=== PATIENT | female | born 1995 | race Caucasian/White ===

== ENCOUNTER 2019-02-05 13:36 | Emergency (ER) | payer MEDICAID, SELFPAY ==
[2019-02-05 13:37] VITALS: BP 126/67; PULSE 72; RESP 14; TEMP 36.9; O2SAT 97; BMI 29.0
--- NOTE | 2019-02-05 14:03 | ED.DCSUM_ITS ---
- ER Visit Summary Date of Service: 02/05/19 Chief Complaint: Possible STD History of Present Illness: The patient is a 23 F who presents for possible STD. Patient states she has had intercourse with 2 different partners recently. Patient states she had intercourse with the father of her children without a condom. Patient states she had intercourse with another partner but used a condom. Patient denies any dysuria or hematuria. Patient states she started her menstrual period today. Patient admits to some vaginal discharge but thinks it is related to her menstrual period. Patient admits to some lower abdominal cramping. Physical Examination: Vital signs are stable. Patient is afebrile. Patient is in no acute distress. Oral mucosa is pink and moist. Neck is supple. Trachea is midline. There is no JVD noted. Heart was regular rate and rhythm. Lungs are clear and equal bilateral. Abdomen is soft. Bowel sounds are normal. There is no tenderness. There is no guarding noted. Skin is warm dry. Cranial nerves II through XII are intact. There are no focal motor or sensory deficits noted. The remaining physical exam is within normal limits. Test Results: Urinalysis is normal. GC and Chlamydia cultures are pending. Emergency Department Course and Treatment: Patient was given Rocephin and Zithromax here. Patient was instructed to follow-up with her primary care physician in 7-10 days. Patient was instructed to refrain from intercourse until she follows up. Patient understood and was agreeable with the plan. All questions were answered. Disposition: Discharge home Impression: STD exposure This note was generated with [employer] dictation software. It may contain incorrect words, spelling, and punctuation that were not noted in review of the chart prior to signing ED Disposition - Plan for ED Patient: Disposition: Home or Assisted Living Diagnosis: STD exposure Instructions: ED Urethritis Infec Vs Inflam Fem Referrals: Care Physician,No Primary [Primary Care Provider] - Nima Guerin DO [STAFF PHYSICIAN] - 1 Week Additional Instructions: Avoid sexual intercourse until follow-up with your primary care physician
[2019-02-05 14:34] LABS: Mucous, Urine 0 SEEN /hpf (<or=2+)
[2019-02-05 14:37] LABS: Color, Urine Yellow (Yellow); Glucose, Dipstick Normal (Normal); Ketone-Dipstick Negative (Negative); Leukocyte Esterase-Dipstick 25 /ul (Negative); Nitrite-Dipstick Negative (Negative); Occult Blood-Urine 10 /ul (Negative); Protein-Dipstick Negative (Negative); Specific Gravity, Urine 1.015 (1.002-1.030); Urine Bilirubin Dipstick Negative (Negative); Urine Clarity Sl. Cloudy (Clear); Urine Urobilinogen 1 mg/dl (Normal); Urine pH 6.5 (5.0 - 8.0)
[2019-02-05 14:50] LABS: Bacteria 1+ /hpf (None Seen); Red Blood Cells-Urine 0-5 SEEN /hpf (0-5); Squamous Epithelial Cells - UA 0-5 SEEN /hpf (5-10); White Blood Cells 0-5 SEEN /hpf (0-5)
[2019-02-05 16:24] LABS: HIV - WCH Non-Reactive (Nonreactive)
[2019-02-05] MEDS: Azithromycin 250 MG Tablet 1000 MG PO (16:30)
[2019-02-05] MEDS: Ceftriaxone 500 MG Vial 250 MG IM (16:30)
[2019-02-05 16:50] VITALS: PULSE 67; RESP 16; O2SAT 99
[2019-02-05 17:17] LABS: Chlamydia Trachomatis by PCR Negative (Negative); Neisserai gonorrhoeae by PCR Negative (Negative); Probe Check PASS; Sample Adequacy Control PASS; Specimen Processing Control PASS
== END 2019-02-05 16:50 | disposition home or self-care (01) ==
PROVIDERS: Emergency Provider Emergency Medicine
DX: Z20.2 Contact with and (suspected) exposure to infections with a predominantly sexual mode of transmission (principal); Z72.0 Tobacco use
CPT/HCPCS: 81001; 86703; 87491; 87591; 96372; 99283

== ENCOUNTER 2019-06-03 13:21 | Emergency (ER) | payer MEDICAID, SELFPAY ==
[2019-06-03 13:21] VITALS: BP 121/70; PULSE 86; RESP 16; TEMP 37; O2SAT 100; BMI 28.0
--- NOTE | 2019-06-03 14:10 | ED.VIS.GEN ---
History of Present Illness Chief Complaint: Complaint Detail of Chief Complaint: Vaginal discharge Informant: Patient Onset: Weeks - 1 Context: Gradual Onset - After having unprotected intercourse 2-3 weeks ago Timing: Continuous Quality: White, otherwise a symptomatic Location: Vaginal Current Severity: Mild Maximum Severity: Mild Worsened by: nothing Relieved by: nothing Associated Symptoms: none Narrative: Patient states she wants checked for all STDs. Denies any abdominal or pelvic pain. No nausea, vomiting, fevers. No urinary symptoms. No vaginal discomfort or itching. No known history of STDs. Past Medical History - Allergies and Home Meds Allergies/Adverse Reactions: Allergies No Known Allergies Allergy (Verified 06/03/19 13:24) Primary Care Physician: Care Physician,No Primary [Primary Care Provider] - Smoking Status: Heavy Smoker (>10/day) Drugs: None Review of Systems General: Denies: Chills, Fever Gastrointestinal: Denies: Abdominal pain, Nausea, Vomiting Genitourinary: Reports: - - Vaginal discharge, - - LNMP - now, has been regular. Denies: Dysuria, Hematuria, Frequency Musculoskeletal: Denies: Neck pain, Back pain Physical Exam Vital Signs/Narrative: Vital Signs Temp Pulse Resp BP Pulse Ox 06/03/19 13:21 98.6 F 86 16 121/70 H 100 Inital Vital Signs reviewed: Yes General: Well nourished, Well developed, No Acute Distress Head: Normocephalic, Atraumatic Abdomen: Soft, Nontender, Nondistended, Normal bowel sounds Skin: Normal color, No rash Neurological: Alert, Oriented x3, Cranial nerves II-XII grossly intact, Normal Strength, Normal Sensation, Normal Gait Psychological: Normal affect, Normal Mood Diagnostic/Tx/Re-eval Microbiology 06/03/19 14:30 Genital vaginal Wet Prep - Final -- Neg Trich; No WBC/HPF. - Medical Decision Making GC and Chlamydia are sent and pending. Patient was treated for both with Rocephin 250 IM and azithromycin 1 g p.o.. Wet prep is negative. Advised to follow-up with the health department for any further STD testing, none others clinically suspected but as I advised her, we are not able to test for HIV here. Advised to follow-up. ED Disposition - Plan for ED Patient: Disposition: Home or Assisted Living Diagnosis: Sexually transmitted infection Instructions: CERVICITIS (STD), Treated Referrals: Christina Callejas [NON-STAFF] - 5-7 Days
[2019-06-03] MEDS: Azithromycin 250 MG Tablet 1000 MG PO (14:20)
[2019-06-03] MEDS: Ceftriaxone 500 MG Vial 250 MG IM (14:54)
[2019-06-03 16:53] LABS: Chlamydia Trachomatis by PCR POSITIVE (Negative); Neisserai gonorrhoeae by PCR Negative (Negative)
[2019-06-03 16:54] LABS: Probe Check PASS
--- NOTE | 2019-06-03 16:58 | ED.RN ---
called and left the pt a vm requesting her to call back regarding her test results.
== END 2019-06-03 15:36 | disposition home or self-care (01) ==
PROVIDERS: Emergency Provider Emergency Medicine
DX: A64 Unspecified sexually transmitted disease (principal); F17.200 Nicotine dependence, unspecified, uncomplicated
CPT/HCPCS: 87210; 87491; 87591; 96372; 99283

== ENCOUNTER 2019-08-07 13:13 | Emergency (ER) | payer MEDICAID, SELFPAY ==
[2019-08-07 13:17] VITALS: BP 144/89; PULSE 82; RESP 17; TEMP 36.8; O2SAT 98; BMI 28.5
--- NOTE | 2019-08-07 16:37 | ED.VISSUMM ---
- ER Visit Summary Date of Service: 08/07/19 Chief Complaint: Anxiety and panic attacks History of Present Illness: The patient is a 23 F who presents with increasing anxiety and panic attacks over the past 2 to 3 months. Patient states nothing in particular brings them on. Patient states they have been getting more frequent. Patient states it improves after taking marijuana. Patient denies any suicidal ideation or plans. Patient denies any homicidal ideations. Patient states her panic attacks have been intermittent. Patient states she does have some chest pain with her panic attacks but states it is similar to prior chest pain with her panic attacks. Physical Examination: All vital signs are stable. Patient is afebrile. Patient is in no acute distress. Oral mucosa is pink and moist. Neck is supple. Trachea is midline. There is no JVD noted. Heart was regular rate and rhythm. Lungs are clear and equal bilateral. Abdomen is soft. Bowel sounds are normal. There is no tenderness. There is no guarding noted. Skin is warm dry. Cranial nerves II through XII are intact. There are no focal motor or sensory deficits noted. Patient was anxious on examination. Patient denies any suicidal thoughts or ideation. Test Results: CBC, basic metabolic profile, urinalysis, and hCG were obtained and were all normal. Emergency Department Course and Treatment: Patient was given a dose of Vistaril here. Patient was feeling better on reevaluation. Patient was given a prescription for Vistaril. Social work was then to evaluate the patient was able to set her up for outpatient psychiatric treatment. Patient understood and was agreeable with the plan. All questions were answered. Disposition: Discharge home Impression: Acute anxiety This note was generated with [employer] dictation software. It may contain incorrect words, spelling, and punctuation that were not noted in review of the chart prior to signing ED Disposition - Plan for ED Patient: Disposition: Home or Assisted Living Diagnosis: Acute anxiety Instructions: Anxiety Reaction Prescriptions: hydrOXYzine pamoate capsule [Vistaril] 25 mg PO TID PRN PRN #30 cap PRN Reason: Anxiety Prescription Printed Referrals: Care Physician,No Primary [Primary Care Provider] -
--- NOTE | 2019-08-07 17:20 | CM.ED ---
SOCIAL WORK ASSESSMENT INFORMANT: DR. ARAIZA REASON FOR REFERRAL: MENTAL HEALTH RESOURCES CHIEF COMPLIANT: INCREASED ANXIETY, PANIC ATTACKS. LIVING SITUATION: HOME WITH 3 CHILDREN, AGES 7, 4, AND 2. SUPPORTS: PATIENT STATES GRANDMOTHER AND AUNT ARE GOOD SUPPORT FOR PATIENT AND HER CHILDREN. PATIENT ALSO FOLLOWS WITH [facility]. LEGAL ISSUES: PATIENT IS CURRENTLY ON PROBATION FOR TRESPASSING. PATIENT CONCERNED ABOUT GOING TO PENITENTIARY SHE WAS RECENTLY DRUG SCREENED AND FAILED D/T MARIJUANA USE. MENTAL HEALTH TREATMENT/HISTORY: PATIENT REPORTS HISTORY OF SEVERE ANXIETY, DEPRESSION AND PTSD. PATIENT WAS PRESCRIBED MEDICATION, BUT DID NOT TAKE IT FOR LONG SHE DID NOT LIKE HOW SHE WAS FEELING. PATIENT REPORTS FOLLOWS WITH [facility]. SUBSTANCE ABUSE HISTORY: PATIENT ADMITS TO OCCASIONAL MARIJUANA USE. EDUCATION/EMPLOYMENT: PATIENT OBTAINED HER G.E.D. AND HAS HAD SOME COLLEGE. 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 PATIENT REPORTS IS CURRENTLY UNEMPLOYED. TRANSPORTATION: PATIENT STATES ISSUES WITH TRANSPORTATION SHE DOES NOT HAVE A CAR. ASSESSMENT: MET WITH PATIENT IN ROOM. INTRODUCED ROLE AND REASON FOR REFERRAL. PATIENT HAS BEEN HAVING INCREASED ANXIETY AND PANIC ATTACKS. 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 PATIENT IS CURRENTLY ON PAROLE AND ALLOWED A FRIEND AND HER GIRLFRIEND TO STAY WITH HER FOR A NIGHT THEY DO NOT HAVE A PLACE TO LIVE. PATIENT STATES FOUND OUT THIS MORNING THAT THEY WERE USING METH AND ASKED THE FRIENDS TO LEAVE SHE HAS CHILDREN IN THE HOME AND IS ON PAROLE. 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 PATIENT STATES ALL OF THIS ELEVATED HER ANXIETY. PATIENT TEARFUL. PATIENT HAD SMOKED MARIJUANA TO HELP WITH ANXIETY. MUCH EMOTIONAL SUPPORT AND ACTIVE LISTENING PROVIDED THROUGHOUT. PATIENT HAS A HARD TIME FINDING HELP THERE IS NO ONE TO WATCH HER KIDS AND DOESN'T WANT TO STRESS OUT HER GRANDMOTHER. PATIENT FEARFUL OF LOSING HER CHILDREN AND GOING TO PENITENTIARY. PATIENT EXPLAINED THAT SHE RECENTLY TESTED DIRTY ON DRUG SCREEN. PATIENT OPEN TO FOLLOW UP APPOINTMENT WITH [facility] FROM ED VISIT. APPOINTMENT SCHEDULED FOR A 10AM APPOINTMENT TOMORROW, 08/08/19 WITH [facility]. DISCUSSED RESOURCES AVAILABLE IN THE COMMUNITY FOR NEEDS. ALL QUESTIONS ANSWERED. UPDATED DR. ARAIZA ON THE ABOVE. PLAN: D/C HOME BEFORE WITH FOLLOW UP AT [facility] TOMORROW AT 10AM. MELINDA VILLAGOMEZ, ECONOMIC DEVELOPMENT DIRECTOR.
[2019-08-07] MEDS: hydrOXYzine PAM 25 MG Capsule PO (17:21)
[2019-08-07 17:39] LABS: Bacteria 0 SEEN /hpf (None Seen)
[2019-08-07 17:43] LABS: Basophil# 0.02 X10^3/uL; Basophil% 0.3 % (0-1); Eosinophil# 0.06 X10^3/uL; Eosinophils% 0.8 % (0-5); Hematocrit 41.6 % (37-47); Hemoglobin 13.6 g/dL (12.0-15.0); Lymphocyte % 30.2 % (19-41); Mean Corp Hgb Conc 32.7 g/dL (32-36); Mean Corpuscular Volume 91.8 fL (81-99); Mean Platelet Vol. 11.4 fl (6.2-12.0); Monocyte# 0.48 X10^3/uL; NRBC Flagged by Analyzer 0 % (0-5); Neutrophil # 4.98 X10^3/uL (2.7-7.7); Neutrophil % 62.6 % (47-70); Platelet Count 216 K/mm3 (150-450); RBC Distribution Width CV 12.6 % (11.6-14.6); Red Blood Count 4.53 M/mm3 (4.2-5.4)
[2019-08-07 17:49] LABS: Color, Urine Yellow (Yellow); Glucose, Dipstick Normal (Normal); Ketone-Dipstick Negative (Negative); Leukocyte Esterase-Dipstick 100 /ul (Negative); Nitrite-Dipstick Negative (Negative); Occult Blood-Urine 10 /ul (Negative); Protein-Dipstick 15 mg/dl (Negative); Urine Bilirubin Dipstick Negative (Negative); Urine Clarity Clear (Clear); Urine Urobilinogen 1 mg/dl (Normal)
[2019-08-07 17:51] LABS: Internal QC Validated? YES +Cl - CLEAR BKGD; Pregnancy, Serum, hCG Quali. NEGATIVE Negative
[2019-08-07 17:54] LABS: Anion Gap 5 (5-15); BUN 7 mg/dL (7-18); BUN/Creat Ratio 8.7 RATIO (10-20); Chloride 110 mmol/L (98-107); Creatinine, Serum 0.81 mg/dL (0.55-1.02); EST Glomerular Filtration Rate 91 mL/min (>60); Est Glom Filt Rate - Afr Amer 110 mL/min (>60); Estimated Creatinine Clearance 110.96 ml/min; Glucose 85 mg/dL (74-106); Potassium 3.6 mmol/L (3.5-5.1); Sodium Level 139 mmol/L (136-145)
[2019-08-07 17:56] LABS: Mucous, Urine 1+ /hpf (<or=2+); Red Blood Cells-Urine 0-5 SEEN /hpf (0-5); Squamous Epithelial Cells - UA 5-10 SEEN /hpf (5-10); White Blood Cells 0-5 SEEN /hpf (0-5); Yeast-Urine RARE /hpf (None Seen)
[2019-08-07 18:23] VITALS: BP 124/77; PULSE 61; RESP 15; O2SAT 98
== END 2019-08-07 18:24 | disposition home or self-care (01) ==
PROVIDERS: Emergency Provider Emergency Medicine
DX: F41.9 Anxiety disorder, unspecified (principal); J02.9 Acute pharyngitis, unspecified; M54.2 Cervicalgia; F32.9 Major depressive disorder, single episode, unspecified; F43.10 Post-traumatic stress disorder, unspecified; F12.90 Cannabis use, unspecified, uncomplicated; F17.200 Nicotine dependence, unspecified, uncomplicated
CPT/HCPCS: 80048; 81001; 84703; 85025; 99283

== ENCOUNTER 2019-08-12 09:00 | Outpatient (RCR) | payer MEDICAID, SELFPAY ==
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
--- NOTE | 2019-08-12 10:02 | BH.SGPN.GN ---
Behaviors/Verbalizations/Mental Status: [Eye contact is good. Motor activity is appropriate. Appearance is casual. Speech is Appropriate. Mood is anxious, depressed. Affect is congruent. Thoughts are linear and logical. No evidence of psychosis.] Client Response/Progress/Benefit: [Pt was an active participant in group activity and discussion. Mostly attentive during psycho-education, though at times appearing distracted by own thoughts/worries. Pt worked with peers to define coping skills and discussed that coping skills included; skills to use to get us through difficult times, techniques to manage emotions, and reactions to difficult things/stressors in life. Group also worked together to identify how we learn our coping skills and pt indicated that ?past experiences, lack of awareness that skills are unhealthy or what else to do, habit, environment, and fear contribute to commonly used means of coping. Group discussed that not all coping skills are healthy and identified common unhealthy coping skills. Pt indicated that in the past she has struggled with coping with her emotions in unhealthy ways such as through; isolating, avoidance, substance use, impulsivity, and becoming more irritable with others. She participated in challenge activity in which participants were tasked with applying healthy coping skills to remain calm and regulate themselves while working together to complete a difficult task. After the group related the activity to need for healthy coping skills in daily life and pt expressed that having a good communication and support from others is important for coping skill development. Pt benefited from increased insight and education on healthy vs unhealthy coping and internal vs external coping skills. Recommended continued IOP tx to reduce anxiety and depression, increase consistent skill application, and prevent decompensation.] Narrative Note: []
--- NOTE | 2019-08-12 11:11 | BH.SGPN.GN ---
Behaviors/Verbalizations/Mental Status: [Client alert and oriented, casually dressed and groomed. Eye contact fair to good. Motor activity appropriate. Speech within normal limits. Affect congruent, mood anxious, depressed. Thoughts linear, logical, no signs of hallucinations or delusions. ] Client Response/Progress/Benefit: [Client responded well to session, engaged throughout and actively listening as others provided ideas during group brainstorming. Client appeared to connect with the activity from second group and helped the group identify benefits of having a strong foundation of internal and external coping skills. Client shared she came to IOP because her external coping skills were not working and she did not want to continue to rely on unhealthy ways of avoiding/numbing herself to current stressors, and she wanted to learn ways of better coping for herself. Client helped the group discuss the different categories of coping skills and provided examples. Client created a coping skills ?menu? for the five categories of coping skills. Client selected deep breathing, yoga/exercise, positive self-talk, and using opposite action. Client appeared to benefit from increasing her repertoire of healthy coping skills. Progress noted in client?s improved mood and report of reduced intensity of anxiety symptoms. Client to continue IOP to promote gains and improve level of functioning.] Narrative Note: []
--- NOTE | 2019-08-12 13:37 | BH.COMM ---
Communication Note - Communication with Client Communication Note: Therapist met with client after IOP groups to see how client's first day went. Therapist introduced self as client's individual counselor and gathered client's treatment goals. Client reported she felt anxious today, but it went well. Client identified her treatment goals to be reducing anxiety and becoming more independent. Client to meet with therapist this week for an individual session.
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
--- NOTE | 2019-08-13 12:28 | BH.DR.ITP ---
Initial Treatment Plan - Patient Information Visit Information: ADMISSION DATE: EXPECTED LOS: 4-6 weeks - Problems/Symptoms Problem #1:: Anxiety Symptom:: Rumination, panic attacks, worry, jittery Problem #2:: Depression Symptom:: Sadness, crying, decreased concentration
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
--- NOTE | 2019-08-13 15:26 | BH.NOTE ---
BH: Inpatient Note - Notes Behavioral Health Inpatient Note: Per written order from Dr. López, the follow prescriptions were [facility] [place], [place]: Effexor XR 37.5mg PO daily x5 days, then 75mg PO daily, #60, NO refills Buspar 10mg PO BID, #60, NO refills Coty Whitaker, MSN, RN
--- NOTE | 2019-08-14 14:32 | BH.COMM_ITS ---
Communication Note - Communication with Client Communication Note: Therapist spoke with client's aoc director intelligence officer on the phone regarding client's attendance and engagement in the program. Therapist also faxed over the ELYSSA client signed for her aoc director intelligence officer. Therapist and PO will likely continue communication for continuity of care purposes.
--- NOTE | 2019-08-14 14:32 | BH.COMM ---
Communication Note - Communication with Client Communication Note: Therapist spoke with client's liaison officer on the phone regarding client's attendance and engagement in the program. Therapist also faxed over the ELYSSA client signed for her liaison officer. Therapist and PO will likely continue communication for continuity of care purposes.
--- NOTE | 2019-08-15 09:03 | BH.SGPN.GN ---
Behaviors/Verbalizations/Mental Status: []Client alert and oriented, casual dress, hygiene tended to. Eye contact good. Motor activity appropriate. Speech within normal limits. Affect congruent, mood anxious. Thoughts linear, logical, no signs of hallucinations or delusions. Reviewed client?s symptom tracker, no signs of suicidal ideation, plan, or intent as of today. Client Response/Progress/Benefit: []Pt appeared to listen attentively to others and openly shared thoughts and feelings with group. Emotion for today is anxious. Pt reported current stressors are having to pay her rent and her children broke a window last night so worried her landlord will see that today. Pt identified a mental health positive is being able to get her kids ready this morning in addition to herself so she could attend IOP today. Pt identified motivation and determination to improve her mental health is what pushed her to get here today. Progress demonstrated as pt continuing to attend IOP despite several psychostressors that could be barriers to treatment. Continued IOP tx recommended to increase healthy coping, prevent decompensation, and to identify and challenge distorted thoughts. Narrative Note: []
--- NOTE | 2019-08-15 10:15 | BH.SGPN.GN ---
Behaviors/Verbalizations/Mental Status: [] Eye contact is good. Motor activity is appropriate. Appearance is casual. Speech is Appropriate. Mood is anxious. Affect is congruent. Thoughts are linear and logical. No evidence of psychosis Client Response/Progress/Benefit: [] Pt was an active participant in group discussion and activity. Attentive during psycho-education. Worked with group to define stress. Group settled on the definition of a reaction to change. Group also identified warning signs to stress and had a discussion on how certain types of stressors can actually be beneficial. Attentive during psycho-education on Eustress (motivates, encourages growth) and distress (overwhelmed, hopelessness, low energy, anger, worry). Pt was given a worksheet in which she identified the current stressors and their impact on her life and her mental health which she shared with the group. Narrative Note: []
--- NOTE | 2019-08-15 11:15 | BH.SGPN.GN ---
Behaviors/Verbalizations/Mental Status: [Client alert and oriented, casual appearance and appropriate grooming. Eye contact good. Motor activity appropriate. Speech within normal limits. Affect congruent, mood dysthymic. Thoughts linear, logical, no signs of hallucinations or delusions.] Client Response/Progress/Benefit: [Pt engaged in session as evidenced by pt listening attentively to others, participating in activity, and providing some input throughout session. Pt appears to be making progress in her ability to provide input and increase engagement in discussion. She worked with the group to complete the challenge activity and did well to remain engaged while being challenged to manage in the moment stressors. Pt was able to identify barriers encountered that may also impact managing stress in daily life, indicating connecting with idea that negative self-talk can be a barrier in stress management. Pt actively listening during discussion about the 4 A's of managing stress. Expressed wanting to increase awareness of which strategies would be best for improving each of her identified stressors. Pt seemed to benefit from increased awareness of the impact of stress on mental health and increasing repertoire of stress management strategies. Pt to continue in IOP to prevent decompensation, continue to and promote use of healthy coping and thought challenging skills, and decrease anxiety.] Narrative Note: []
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
--- NOTE | 2019-08-15 14:48 | BH.MDN ---
Multi-Disciplinary Note - Note 45-min Individual Time Started:: 11:16 Date: 08/15/19 Purpose of session/treatment goals addressed:: The purpose of this session was to gather information on client's current stressors, symptoms, and treatment goals. Another goal was to build rapport. Staff Interventions:: Therapist used active listening and open-ended questions to explore client's current stressors, symptoms, history, and treatment goals. Therapist used strengths perspective to build rapport and help client identify personal resilience factors. Therapist provided psychoeducation on depression, anxiety, and trauma. Client Response:: Client responded well to session, open to meeting with therapist. Client willing to discuss her symptoms, current stressors, triggers, and psychosocial history. Client reported she has had mental health symptoms for many years. Client has lost many people in her life and has lived through numerous traumatic experiences. Client related to complex trauma and shared that's literally me. Client reported she has learned to cope in unhealthy ways with her symptoms, such as using marijuana. Client stated she is currently on probation and she has not been using marijuana to cope with her anxiety. Client shared it's so hard, but I have to. Client reported she feels overwhelmed currently by all she is required to do for her probation. Receptive to learning coping skills to help manage anxiety. Client identified her personal treatment goals to be reducing anxiety, learning about PTSD, improving daily functioning, and becoming more independent. Risks/Concerns:: Client reports having passive thoughts of at times, but she denies any active suicidal ideations, plan, or intent as of 08/15/19. Client identifies her children a reason to live. Progress Toward Goals/Plan:: Due to client recently starting IOP, there is no progress to document currently. Client currently endorses anxiety, panic attacks, rumination, racing thoughts, a depressed mood, and low motivation. Client also has a history of PTSD and complex trauma. Client is currently working to stop using marijuana as a coping skill for anxiety. Will continue tx to prevent further decompensation, increase use of healthy coping skills, and reduce anxiety. Time Stopped:: 11:50
--- NOTE | 2019-08-15 14:49 | BH.MTP_ITS ---
[facility] - Patient Information Program Physician:: Shannon López Primary Therapist:: Grace Chavez - Psychiatric Diagnoses Psychiatric Diagnoses:: Major depressive disorder recurrent severe without psychosis F33.2, generalized anxiety disorder, PTSD, Cluster B traits. Diagnosis Code(s):: F33.2 - Estimated LOS Estimated LOS (in weeks):: 6 Problem/Goal #1 - Problem/Goal #1 Stated Goal:: Reduce overall frequency, intensity, and duration of anxiety and panic so that daily functioning is not impaired. Description of Barriers: Client is currently on probation for trespassing and is required to complete community service, get a job, and counseling. Client reports feeling overwhelmed by all the requirements, especially because of the logistics of finding child caregiver private home. Client is also a single mother of three children. Transportation is a barrier for client, but she is currently getting help from family. Client is currently unemployed. Client has a history of complex trauma and has been through numerous hardships in her life. Client has a history of substance use to cope with her mental health symptoms. Functional Impact: Client is a 23-year-old woman with a history of MDD, IMLLI, and PTSD. Client was referred to IOP by [facility] ER psychotherapist social worker. Client presented to the ER on 08/07/19 with worsening anxiety and daily panic attacks. Client reported her symptoms have been worsening over the past several months due to numerous stressors. Client stated feeling overwhelmed and constantly worried that something bad will happen. Client endorses lack of appetite, decreased energy, hopelessness, poor concentration, anhedonia, isolation, frequent panic attacks, and worthlessness. Client has a history of marijuana use which client acknowledges is due to self-medicating to manage her anxiety. Client reports her symptoms are interfering with ability to function at her baseline and manage daily stressors. Goal Relevant Strengths/Supports: Client presents as a kind, intelligent, and resilient woman who reports motivation to improve her mental health and make positive changes. Client is currently on probation and stated, this really opened my eyes. Client shared she is no longer smoking marijuana and wants to learn new coping skills. Client has lived through numerous traumatic experiences in her life and continues to move forward. Client identifies her grandmother, aunt, and children as her main motivators for change. Client reports being receptive to learning new skills and receiving mental health help. - Objectives Objective #1 Stated Objective: Client will be able to explain common stress reactions and symptoms related to trauma and learn 2-3 coping skills to manage symptoms. Interventions: Therapist will provide education on trauma and explain impact trauma can have on development. Will help client explore personal symptoms and warning signs of stress and trauma. Therapist will teach client coping skills to improve emotional regulation, mindfulness, and distress tolerance. Therapist will help client get connected with additional trauma-focused services, should client agree. Discharge Criteria: Client will have met this objective when can identify common stress reactions to trauma and report using at least 2 coping skills to manage symptoms. Target Date: 09/23/19 Review Date: 09/11/19 Status: open Objective #2 Stated Objective: Client will learn and utilize 2-3 healthy coping strategies to manage anxiety and panic symptoms as shown by reduced DSM-5 cross-cutting symptom measure score for anxiety and reduced use of unhealthy coping skills (i.e smoking). Interventions: Through group and individual sessions, therapist will assist client in learning internal coping strategies to manage anxiety symptoms, along with helping client identify triggers. Therapist will help client identify strategies to replace smoking and prevent relapse. Therapist will help client increase awareness of anxiety and PTSD triggers and learn calming coping skills. Discharge Criteria: Client will have achieved this goal when client?s DSM-5 symptoms for anxiety have decreased and she can verbalize and has practiced at least 2 healthy coping strategies. Target Date: 09/23/19 Review Date: 09/11/19 Status: open Problem/Goal #2 - Problem/Goal #2 Stated Goal:: Client will decrease depressive symptoms, crying spells, and low motivation due to Major Depressive Disorder. Description of Barriers: Client is currently on probation for trespassing and is required to complete community service, get a job, and counseling. Client reports feeling overwhelmed by all the requirements, especially because of the logistics of finding child caregiver private home. Client is also a single mother of three children. Transportation is a barrier for client, but she is currently getting help from family. Client is currently unemployed. Client has a history of complex trauma and has been through numerous hardships in her life. Client has a history of substance use to cope with her mental health symptoms. Functional Impact: Client is a 23-year-old woman with a history of MDD, MILLI, and PTSD. Client was referred to [facility] by [facility] ER psychotherapist social worker. Client presented to the ER on 08/07/19 with worsening anxiety and daily panic attacks. Client reported her symptoms have been worsening over the past several months due to numerous stressors. Client stated feeling overwhelmed and constantly worried that something bad will happen. Client endorses lack of appetite, decreased energy, hopelessness, poor concentration, anhedonia, isolation, frequent panic attacks, and worthlessness. Client has a history of marijuana use which client acknowledges is due to self-medicating to manage her anxiety. Client reports her symptoms are interfering with ability to function at her baseline and manage daily stressors. Goal Relevant Strengths/Supports: Client presents as a kind, intelligent, and resilient woman who reports motivation to improve her mental health and make positive changes. Client is currently on probation and stated, this really opened my eyes. Client shared she is no longer smoking marijuana and wants to learn new coping skills. Client has lived through numerous traumatic experiences in her life and continues to move forward. Client identifies her grandmother, aunt, and children as her main motivators for change. Client reports being receptive to learning new skills and receiving mental health help. - Objectives Objective #1 Stated Objective: Client will learn and utilize 2-3 healthy coping strategies to better manage depressive symptoms as shown by a reduced DSM-5 score for depression. Interventions: Through group and individual sessions, therapist will help client identify triggers and warning signs of depression and emotional dysregulation including emotional, physical, and behavioral changes. Therapist will teach client various coping skills to manage her symptoms and give client tangible resources to use to regulate emotions. Therapist will use cognitive restructuring techniques and help client gain awareness of negative thoughts that reinforce depressive cycles. Therapist will help client incorporate behavioral activation and assist client in setting SMART goals. Discharge Criteria: Client will have met this goal when she can report learning and using at least 2 coping skills to manage depressive symptoms. Additionally, client will have met this goal when her DSM-5 scores reflect a reduction in symptoms. Target Date: 09/23/19 Review Date: 09/11/19 Status: open Objective #2 Stated Objective: Client will identify at least 2-3 negative self-talk messages used to reinforce depressive symptoms and replace thoughts with positive, realistic messages. Interventions: Therapist will help client identify distorted, negative thoughts that reinforce lack of motivation and depressive symptoms and replace with more realistic, affirmative messages. Therapist will use CBT to help client increase insight to the connection between thoughts, emotions, and behaviors. Therapist will encourage client to practice thought challenging. Discharge Criteria: Client will have achieved this goal when can verbalize at least 2 negative self-talk messages and effectively replace those thoughts with affirmative messages. Target Date: 09/23/19 Review Date: 09/11/19 Status: open
--- NOTE | 2019-08-18 09:05 | BH.SGPN.GN ---
Behaviors/Verbalizations/Mental Status: [Eye contact is good. Motor activity is appropriate. Appearance is casual. Speech is Appropriate rate and tone. Mood is euthymic, anxious. Affect is congruent. Thoughts are linear and logical. No evidence of psychosis. Reviewed daily check in sheet and pt denies any active SI, plan, or intent. ] Client Response/Progress/Benefit: [Pt responded well to session, engaged throughout and open to processing with the group. Pt indicated current emotion as ?anxious but positive? and discussed that this is due to being able to use skills over the weekend to prevent an unnecessary argument and prioritize her mental health. Went on to discuss that she set a boundary with her children?s father which aided in avoiding a fight. Pt noted this as a mental health win as she has had difficulties in setting boundaries with others in the past, especially when it involves her children. Additional win recognized as going the entire weekend without smoking as a means of coping. Shared this continues to be a stressor but that she is using thought challenging and positive self-talk to cope. Pt appearing to benefit from support and structure of group environment. Pt continues to make progress in practicing more consistent use of coping skills and self-reports increased mood stability. Pt is recommended continued IOP tx to prevent decompensation, maintain gains, reduce anxiety, and promote ongoing application of healthy coping skills.] Narrative Note: []
--- NOTE | 2019-08-18 10:15 | BH.SGPN.GN ---
Behaviors/Verbalizations/Mental Status: []Client alert and oriented, casual dress, hygiene tended to. Eye contact fair. Motor activity appropriate. Speech within normal limits. Affect constricted, mood anxious and depressed. Thoughts linear, logical, no signs of hallucinations or delusions. Client Response/Progress/Benefit: []Client responded well to session AEB contributing thoughts to discussion and listened attentively to others. Client connected with the discussion about how distorted thought patterns can reinforce mental health symptoms. Client did well to work with the group on defining the various types of cognitive distortions and identifying how each distortion can negatively impact mental health. Client reported that she struggles mental filter. Client stated after a conversation with another person she will ?filter out? all the positive parts of the conversation and focus on the ?one dumb thing? she perceives she said. Client recognizes distorted thoughts exasperate her mental health symptoms. Client connected with using all or nothing thinking and emotional reasoning most often. Progress noted with attempting to utilize the skills learned outside treatment environment. Appeared to benefit from increasing awareness of cognitive distortions and how they can impact emotions and behaviors. Client to continue IOP to improve emotional regulation, increase healthy coping skills, and prevent decompensation. Narrative Note: []
--- NOTE | 2019-08-18 11:15 | BH.SGPN.GN ---
Behaviors/Verbalizations/Mental Status: []Client alert and oriented, casually dressed and groomed. Eye contact good. Motor activity appropriate. Speech within normal limits. Affect congruent, mood anxious. Thoughts linear, logical, no signs of hallucinations or delusions. Client Response/Progress/Benefit: []Client?engaged during session AEB client providing contributions throughout group session and engaging in activity. Client worked cooperatively with peers during group activity. Client acknowledged the importance of needing to have awareness and put forth the effort to challenge, reframe, and replace distorted thought patterns. Client nodded that she has had distorted thoughts for a long time, so it will take time to change her thinking. Client worked cooperatively with group to challenge distorted thoughts and was attentive in learning strategies to combat distortions. Client reported she wants to practice catching herself when she has negative thoughts and she plans to do this by paying attention to the negative thought ?red flags? discussed in group. Client seemed to benefit from increased awareness of cognitive distortions and practicing reframing distorted thoughts. Client to continue IOP level of care to prevent decompensation of anxiety symptoms and reduce panic.?
[2019-10-15 15:18] VITALS: BP 116/82; PULSE 84; RESP 16
== END 2019-08-18 23:59 ==
LOC: BHIOP 09:00
PROVIDERS: Referring Provider Psychiatry & Neurology Psychiatry; Visit Provider Psychiatry & Neurology Psychiatry
DX: F33.2 Major depressive disorder, recurrent severe without psychotic features (principal); F41.1 Generalized anxiety disorder; F43.10 Post-traumatic stress disorder, unspecified; Z79.899 Other long term (current) drug therapy; F12.90 Cannabis use, unspecified, uncomplicated
CPT/HCPCS: 90792; H0035; H2012; H2020; T1002; 90832

== ENCOUNTER 2019-08-19 09:00 | Outpatient (RCR) | payer MEDICAID, SELFPAY ==
--- NOTE | 2019-08-19 10:10 | BH.SGPN.GN ---
Behaviors/Verbalizations/Mental Status: []Client alert and oriented, disheveled appearance. Eye contact good. Motor activity appropriate. Speech within normal limits. Affect congruent, mood anxious. Thoughts linear, logical, no signs of hallucinations or delusions Client Response/Progress/Benefit: []Client active participant in group AEB client participating when prompted and listening attentively to peers. Group worked together to identify barriers to making changes or taking action in their lives which included: fear of the unknown, fear of losing control, the perception of others, fear of leaving one?s comfort zone, fear of success, and lack of motivation. Group also identified the benefits of change which included; improved relationships, improved mental wellness, increased confidence, and feelings of accomplishment. Client identified areas she would like to take back control over to include: anxiety, racing thoughts, lack of motivation, feeling exhausted, and lack of concentration. Benefited from group through awareness of personal areas want to improve and benefits to taking action towards mental wellness. To continue IOP level of care to reduce intensity of anxiety and panic symptoms while increasing healthy coping skills.
--- NOTE | 2019-08-19 11:18 | BH.SGPN.GN ---
Behaviors/Verbalizations/Mental Status: []Client alert and oriented, casual dress, hygiene tended to. Eye contact good. Motor activity appropriate. Speech within normal limits. Affect constricted, mood dysthymic and anxious. Thoughts linear, logical, no signs of hallucinations or delusions. Client Response/Progress/Benefit: []Pt engaged participant AEB pt providing input throughout session and listened attentively to others. Pt provided input during discussion about impact lack of action has on progress. Pt completed worksheet in which pt identified a problem area to focus on, a SMART goal to help work on problem area, and identify additional supports needed to be successful. Pt identified she wants to work on increasing motivation. Pt identified SMART goal is to engage in at least activity everyday day that will help improve her life. Pt gave examples of activities to include: job hunting, student loan application, chores, self-care, etc. Pt stated additional supports needed to be successful with goal include: family support, establishing transportation help, hiring a housekeeping supervisor, and focusing on the positive. Pt progressing with application of emotional regulation skills outside treatment environment. Pt to continue IOP to prevent decompensation, increase healthy coping skills, and improve emotional regulation. Narrative Note: []
--- NOTE | 2019-08-19 11:58 | BH.MDN_ITS ---
Multi-Disciplinary Note - Note 30-min Individual Time Started:: 09:35 Date: 08/19/19 Purpose of session/treatment goals addressed:: The purpose of this session was to address current symptoms, stressors, and triggers. Another goal was to teach client calming techniques and practice grounding techniques to reduce anxiety. Eye Contact:: Good Motor Activity:: Restless Appearance:: Disheveled Speech:: Rapid Mood:: Anxious Affect:: Congruent Thoughts:: Racing, No evidence of hallucinations/delusions noted Staff Interventions:: Therapist used active listening and open-ended questions to explore client's current stressors, triggers, and symptoms of anxiety. Therapist used strengths perspective to reflect on client?s personal resilience factors and normalize client?s experience. Therapist taught client grounding techniques to help reduce client?s symptoms of anxiety and PTSD. Therapist used cognitive restructuring techniques to help client challenge distortions reinforcing anxiety. Therapist gave client homework to practice calming coping skills for help her prepare for court tomorrow. Client Response:: Client responded well to session, open to meeting with therapist. Client reported she is very anxious because she has probation court tomorrow. Client reported she had a panic attack this morning, but she was proud of herself for not turning to marijuana to cope. Client recognized she is having distortions that are reinforcing anxiety. Client reported she fears going to assisted. After challenging her negative thoughts, client able to look at the situation with a more logical lens. Client shared she knows she is not going to assisted and reported her weapons electrical engineering officer has told her this as well. Client willing to practice calming coping skills with therapist to help client cope with anxiety before, during, and after court. Client learned and practiced the 5-senses and progressive muscle relaxation. Client also learned how to use self- talk statements to manage anxiety in the moment. Client stated she wants to a dvocate for herself at her court hearing, but she is fearful to do so. Client and therapist discussed the pros and cons of self-advocacy and client was receptive to talking with her weapons electrical engineering officer further about this. Risks/Concerns:: Client denies any suicidal ideations, plan, or intent as of 08/19/19. Future oriented throughout session. Progress Toward Goals/Plan:: Client is demonstrating progress towards her treatment goals as shown by her report of ongoing motivation to improve her mental health, report of not using marijuana, and increased self-awareness. Client shared she has been trying to use deep breathing. Client is currently reporting high anxiety due to having court tomorrow. Client endorses racing thoughts, restlessness, and reports having a panic attack this morning. Client able to reduce intensity of her symptoms during session. Will continue IOP tx to prevent decompensation, increase emotional regulation skills, and reduce intensity of anxiety. Time Stopped:: 10:04
--- NOTE | 2019-08-20 13:58 | BH.MDN ---
Multi-Disciplinary Note - Note Family Time Started:: 10:25 Date: 08/20/19 Purpose of session/treatment goals addressed:: The purpose of this session was to address and process client's distressing emotions, stressors, and deescalate crisis. Eye Contact:: Fair Motor Activity:: Restless Appearance:: Neat Speech:: Appropriate Mood:: Anxious - at the beginning of session, Irritable - at the beginning of session, Other - calm at the end of session Affect:: Congruent Thoughts:: Linear, Logical - at the end of session, Racing - at the beginning of session, No evidence of hallucinations/delusions noted Staff Interventions:: Therapist used active listening and open-ended questions to explore client's current symptoms and stressors. Therapist provided client a safe place to verbalize and process her emotions. Therapist provided emotional support while using calming strategies to deescalate client's crisis symptoms. Therapist used motivational interviewing techniques to promote change and provided psychoeducation. Therapist used cognitive restructuring techniques to combat and review client?s distortion and unrealistic expectations. Therapist used strengths perspective to empower client and instill hope. Client Response:: Client entered session anxious and agitated. Client's grandmother was present during session. Client came into behavioral health after her court hearing. Following court, client was experiencing increased anxiety and symptoms of panic. Client shared she was about to smoke a blunt because her anxiety was so high. Client expressed frustration that no one is taking me seriously... these meds don't work. Client reported how am I supposed live like this? Client stated she feels like quitting the program because she thinks nothing is working. However, once client's anxiety began to lessen, she realized that whatever help she seeks, the road to recovery will take time, hard work, and patience. Client receptive to psychoeducation on marijuana withdrawal, stress response, PTSD, and anxiety. Client connected with how trauma and substance use impact the brain, pleasure response, and emotional regulation. Client's grandmother and therapist were able to deescalate client and help her see another perspective. Client able to recognize that her expectations of getting rid of her anxiety in a week is unrealistic, especially since she recently stopped smoking marijuana. Client receptive to giving the program another shot with an understanding that progress and changing her way of thinking will take time. Client's anxiety was significantly decreased by the end of session and she was no longer in crisis. Risks/Concerns:: Client denies any active suicidal ideations, plan, or intent as of 08/20/19. Does not present as a threat to herself or others. Progress Toward Goals/Plan:: Client was beginning to demonstrate progress towards her treatment goals, but she due to recent stressors when at court, client presents with a regression of symptoms. Client endorses irritability, restlessness, racing thoughts, rumination, and symptoms of panic. Client was able to work herself through her panic symptoms and reduce anxiety by the end of session. Client shared she feels frustrated that she is ?not better yet? and she feels hopeless. Client receptive to discussion of the process of progress which includes realistic expectations and patience. Will continue IOP tx to prevent decompensation, increase emotional regulation skills, and reduce intensity of anxiety. Time Stopped:: 11:04
--- NOTE | 2019-08-22 09:00 | BH.SGPN.GN ---
Behaviors/Verbalizations/Mental Status: [] Eye contact is good. Motor activity is appropriate. Appearance is disheveled. Speech is Appropriate. Mood is anxious. Affect is congruent. Thoughts are linear and logical. No evidence of psychosis. Reviewed daily check in sheet and pt reports 1/5 for suicidal thoughts and 0/5 for intent. Therapist notified. Client Response/Progress/Benefit: [] Pt participated at times during the group discussion. Shared with the group some stressors related to probation. Recent court appearance in which she got into a very heated debate with her PO. Reports that she wanted to give up and smoke a blunt however she reached out to support including therapist here at and was able to manage her anxiety and anger without use of cannabis. Reports that probation has been stressful. Reports I'm sick of these panic attacks everyday. Benefited from group support, encouragement, and feedback. Progress noted. Will continue in IOP to prevent decompensation, stablize anxiety, and prevent decompensation. Narrative Note: []
--- NOTE | 2019-08-22 10:03 | BH.SGPN.GN ---
Behaviors/Verbalizations/Mental Status: []Client alert and oriented, casually dressed and groomed. Eye contact good. Motor activity appropriate. Speech within normal limits. Affect congruent, mood anxious, euthymic. Thoughts linear, logical, no signs of hallucinations or delusions. Client Response/Progress/Benefit: []Client receptive of session, engaged in discussion and activity. Client discussed the quote and connected with not catching her warning signs which causes client to go from ?zero to one-hundred.? Client reported it is challenging to control her emotions, especially anxiety and anger. Client helped group identify the consequences of not effectively managing emotions which included; strained relationships, guilt, increased negative thinking, increase mental health symptoms, and impulsive behaviors. Group identified barriers that impact one?s ability to communicate when emotions are high. These barriers included; acting on impulse, shutting down, physical aggression, assumptions, and misinterpretations. Client participated in the activity and did well to regulate her emotions. Client reported she felt anxious at times during the activity, but she was able to work through it. Client appeared to benefit from increasing awareness of how emotions can impact communication and practicing in the moment coping skills. Will continue IOP tx to prevent decompensation, increase emotional regulation, and reduce anxiety.
--- NOTE | 2019-08-22 11:20 | BH.SGPN.GN ---
Behaviors/Verbalizations/Mental Status: []Client alert and oriented, casually dressed and appropriately groomed. Eye contact good. Motor activity restless. Speech within normal limits. Affect congruent, mood anxious. Thoughts linear, logical, no signs of hallucinations or delusions Client Response/Progress/Benefit: []Client attentive and contributing to discussion. Attentive during psychoeducation on 4 zones of regulation. Client able to identify how she feels in each zone as well as how she acts in each zone. Client identified when in the low energy zone she exhibits the following behaviors: increased sleep, increased smoking, increased body aches, and feels weak. Client stated she knows she is in a regulated state when she is feeling happy, more productive, energized, and making more rational decisions. Client shared she is in the heightened energy zone when she has increased heart rate, restless, tense, shakes, and less productive. Client stated when in extremely heightened zone she loses control and will say or do things she doesn't mean. Client also able to identify coping skills she can use to support herself in each zone which included: listening to music, yoga, engaging in activities with her kids, challenging her perspective, breathing, and self-care activities. Benefited from group from increased education on zones of regulation or stages of alertness for emotions and healthy coping skills to use for each zone. Will continue IOP tx to maintain gains, prevent decompensation, and increase consistent utilization of healthy skills. Narrative Note: []
--- NOTE | 2019-08-22 13:39 | BH.COMM ---
Communication Note - Communication with Client Communication Note: Therapist checked in with client due to her symptom tracker scores for suicidal ideation this AM being a /5. Client denies any active suicidal ideations, plan, or intent as of 08/22/19. Client reports ability to maintain safety and was future oriented. Client shared she currently feels frustrated about a lot of different things in life, which is why she has passive SI, but client shared ?I won?t do anything.? Does not present as imminent danger to self, due to no active ideations, plan, or intent.
--- NOTE | 2019-08-26 10:13 | BH.SGPN.GN ---
Behaviors/Verbalizations/Mental Status: []Client alert and oriented, casually dressed and groomed. Eye contact good. Motor activity appropriate. Speech within normal limits. Affect congruent, mood euthymic, anxious. Thoughts linear, logical, no signs of hallucinations or delusions. Client Response/Progress/Benefit: []client was an active participant in group discussion and activity. Contributed to discussion on quote of the day as she shared mental and physical growth does not happen by chance. Client stated she used to believe ?I?m a good person, so good things should happen to me.? Client reported she now sees that she is not ?entitled? to positive change, rather she has to work for it. Group worked together to come up with common negative forces in life which can hold them back from growth. These included; toxic relationships, negative thoughts, cognitive distortions, lack of self-care, and trauma. Group then worked together to identify common positive forces which help us grow. These included; healthy coping skills, positive support, self-care, patience, realistic and positive thinking, and self-awareness. Client was attentive during psychoeducation on the importance of utilizing many forces to help one grow. Benefited from group with increased insight and awareness on the impact of negative and positive forces on mental wellness.?
--- NOTE | 2019-08-26 15:22 | BH.MDN_ITS ---
Multi-Disciplinary Note - Note 30-min Individual Time Started:: 09:31 Date: 08/26/19 Purpose of session/treatment goals addressed:: The purpose of this session was to increase awareness of warning signs, symptoms, and triggers for anxiety. Another goal was to learn coping skills to manage emotions and thoughts associated with anxiety. Other topics included: psychoeducation and communication with supports. Eye Contact:: Good Motor Activity:: Appropriate Appearance:: Casual Speech:: Appropriate Mood:: Euthymic, Anxious Affect:: Congruent Thoughts:: Linear, Logical, No evidence of hallucinations/delusions noted Staff Interventions:: Therapist used active listening and open-ended questions to address current stressors, symptoms, and use of coping skills. Therapist provided psychoeducation on anxiety to help client increase awareness of warning signs and triggers. Therapist used a scaling tool to help client gain insight to the different levels of intensity in which she feels anxiety and the warning signs for each. Therapist taught client coping skills to use at each level. Therapist used strengths perspective to empower client on her use of coping skills. Client Response:: Client responded well to session, open to meeting with therapist. Client shared she has some concerns about her medication. Client shared I think my anxiety is worse and that she has not been sleeping. After discussing marijuana withdrawal, client able to recognize that her current exacerbation of anxiety and lack of sleep may be from no longer smoking daily. However, client will meet with psychiatrist to discuss this further. Client e ngaged in discussion of warning signs and triggers for anxiety. At first client struggled to identify warning signs, but with further assistance and exploration, client was able to. Some of client?s warning signs included feeling sick, sweating, tense muscles, restlessness, irritability, negative thinking, and racing thoughts. Client connected with the scaling tool to differentiate between levels of intensity of anxiety. Client able to identify her baseline, moderate, and high anxiety levels. Client reported she has always struggled to catch anxiety early ?because it?s always zero to one hundred.? Client receptive to learning and practicing calming strategies. Client able to identify triggers that would make her symptoms worse or would send her to high anxiety. Client stated her family is helpful, but they also say things and do things that increase client?s anxiety. Client reported ?they?ll tell me I just need to get it together? which makes client irritable and more anxious. Client identified other things her family says or does that worsens her anxiety. Client receptive to identifying strategies to help client reduce the intensity of her anxiety and cope with panic. Client and therapist also discussed strategies client can use to set boundaries with her family. Client was also willing to practice identifying daily accomplishments daily. Risks/Concerns:: Client denies any suicidal ideations, plan, or intent as of 08/26/19. Progress Toward Goals/Plan:: Client is demonstrating progress towards her treatment goals as shown by her self-report of reduced depressive symptoms and feeling more positive. Client stated she has been using deep breathing which is helpful to a point. Client continues to struggle with panic symptoms, sleep disturbance, and anxiety daily. Client and therapist discussed marijuana withdrawal and how this is likely impacting client's poor sleep and increased anxiety. Client will see [facility] psychiatrist tomorrow as client has medication questions. Will continue IOP tx to further increase healthy coping skills, reduce panic symptoms, and improve daily functioning. Time Stopped:: 10:07
--- NOTE | 2019-08-27 09:05 | BH.SGPN.GN ---
Behaviors/Verbalizations/Mental Status: [Client alert and oriented, casual dress, hygiene tended to. Eye contact fair to good. Motor activity appropriate. Speech within normal limits. Affect congruent, mood anxious. Thoughts linear, logical, no signs of hallucinations or delusions. Reviewed client?s symptom tracker, no signs of suicidal ideation, plan, or intent as of today. ] Client Response/Progress/Benefit: [Pt was an active participant AEB engagement in group discussion and openly processing with the group. Emotion for today is anxious as pt indicated she has several little stressors at the moment and is beginning to feel the effects of them. Did well to identify that she can focus on what?s in her control rather than fixating on the things outside of her control to change. Indicated that this change in perspective represents a personal mental health win. Discussed her additional as not becoming angry or lashing out when her son?s father canceled plans to come see him for his birthday. Pt noted that by remaining calm se was able to rationally discuss her disappointment and that he ended up coming to spend time with her son as a result. Progress noted in pt ability to actively apply emotion regulation skills outside of tx environment. Continued IOP tx recommended to continue to promote application of healthy coping skills, increase consistent communication with supports, and prevent decompensation.?] Narrative Note: []
--- NOTE | 2019-08-27 10:18 | BH.SGPN.GN ---
Behaviors/Verbalizations/Mental Status: []Client alert and oriented, neatly dressed and groomed. Eye contact fair. Motor activity restless. Speech within normal limits. Affect constricted, mood anxious. Thoughts linear, logical, no signs of hallucinations or delusions. Client Response/Progress/Benefit: []Client active participant AEB client providing input throughout session, engaged in group activity and listened attentively to peers. Client reported being resilient means ?rolling with the punches.? Client shared ?if you can bend with life and take something that?s going wrong, you?ll be stronger.? Client discussed connections between activity and barriers/supports to development of a resilient lifestyle. Client agreed with peers that one can learn to become more resilient throughout life. Client benefitted from brainstorming benefits of being resilient which included: stronger than before, improving ability to cope, builds confidence and self-esteem, and being open-minded. Client reported one?s thinking impacts resilience as client shared if one views things as insurmountable, ?you lose hope.? Client progressing as shown by her report of not smoking marijuana and decreased depression. Recommend continued IOP tx to promote healthy change behaviors, reduce panic, and improve daily functioning.
--- NOTE | 2019-08-27 11:20 | BH.SGPN.GN ---
Behaviors/Verbalizations/Mental Status: []Client alert and oriented, casually dressed and groomed. Eye contact fair. Motor activity restless. Speech within normal limits. Affect constricted, mood anxious. Thoughts linear, logical, no signs of hallucinations or delusions. Client Response/Progress/Benefit: []Client responded well to session, providing input during discussion and listening attentively to peers. Client engaged in the group activity as shown by client working cooperatively with others and providing ideas to group. Worked with group to identify how the group utilized all of the resiliency factors to help them overcome a challenge that initially seemed impossible. Client reported she wants to work on the resiliency factor of keeping things in perspective. Client stated she has difficulty with catastrophizing situations which leads her to make impulsive choices. Client seemed to benefit from identifying what resiliency factor she wants to improve to increase personal resilience. Client to continue IOP decrease anxious symptoms, increase consistent application of healthy coping skills and prevent decompensation. Narrative Note: []
--- NOTE | 2019-08-27 12:48 | PCM.BH.PN_ITS ---
Progress Note Progress Note: [] History of Present Illness/Interim History: She is a 23-year-old single - [place] female with a history of anxiety, depression and PTSD who is seen in follow-up at the [facility] program. The patient was prescribed Effexor Exar 2 weeks ago in the [facility] program. She states that her mood is much better and she feels happier than she did before. She states however that her anxiety is not better and she feels it may even be worse. She is tolerating the venlafaxine well at 75 mg p.o. daily. She states that the BuSpar and Vistaril have not helped her at all even going up to 50 mg on the Vistaril has not helped her anxiety at all. She is very focused on the medications during the interview. She states that her sleep is still not very good. She says she is up and down all night She said she tried melatonin for 1 night and it did not help her sleep. She has wanted to smoke marijuana but has avoided smoking marijuana because she is on parole and is not allowed to smoke marijuana. She is frustrated that I cannot give her medication that will help her anxiety. We discussed with the patient that it may take a few more weeks for the dose of venlafaxine to continue to improve her anxiety and depression. [] Current Psychiatric Medications:[] Effexor XR 75 mg p.o. daily (x2 weeks) Vistaril 50 mg p.o. up to 3 times a day Mental Status Examination: [Patient is a 23-year-old single female who appears normal for stated age. She has mild psychomotor agitation which consists of m oving her right knee up and down throughout the interview. She was doing the same movement last visit the initial time I saw her before venlafaxine was started. She is cooperative during the interview with good eye contact. Speech is normal rate and rhythm and fluent. Mood is better but still little depressed and describes her self is anxious. Affect is consistent with some anxiety. Thought process is goal-directed and organized. Thought content: No evidence of suicidal or homicidal ideation. No evidence of hallucinations or delusions. Judgment is limited. Impulsivity mild to moderate. Insight is limited. Diagnoses: [] Penitas I: [] Major depressive disorder recurrent severe without psychosis, generalized anxiety disorder, PTSD, marijuana use disorder Penitas II: [Cluster B traits] Penitas III: [Negative Penitas IV: Primary support issues] Plan: [The risks options and possible complications and side effects of medications were discussed with the patient and she understands and accepts these. She is tolerating the venlafaxine well. Patient will stop the BuSpar as she does not feel is helping her anxiety at all. She also does not feel Vistaril helps her anxiety at all. She agrees to start gabapentin 100 mg p.o. 3 times daily. She will continue the [facility] program as the education, structure, support, individual and group therapy will prevent exacerbation of her symptoms which might require hospitalization. She is counseled to continue to avoid using any drugs and especially avoid also using marijuana. She has used marijuana daily since age 8 and only stopped a few weeks ago so some of her anxiety could still be related to stopping the marijuana and wanting to restart it. She will continue to follow-up with her outpatient providers. She felt safe during the interview and if she does not feel safe at any time she will contact the IOP program or go to the emergency room. I will see her in 2 weeks.]
--- NOTE | 2019-08-27 15:01 | BH.NOTE ---
BH: Inpatient Note - Notes Behavioral Health Inpatient Note: Per written order from Dr. López, the following prescription was called into [facility] in [place], [place]: gabapentin 100mg PO TID, #90, NO refills Coty Whitaker, MSN, RN
--- NOTE | 2019-08-29 10:18 | BH.SGPN.GN ---
Behaviors/Verbalizations/Mental Status: [Client alert and oriented, casual dress, hygiene tended to. Eye contact fair to good. Motor activity appropriate. Speech within normal limits. Affect congruent, mood dysthymic, anxious. Thoughts linear, logical, no signs of hallucinations or delusions. ] Client Response/Progress/Benefit: [Pt receptive of session, engaged throughout. She did well to work with the group to reflect on the quote and discussed the ways in which perspective can impact mental health and ability to make personal progress in life. Pt indicated agreeing that a negative perspective can led to looking at only the negative and lead to more depressive thought patterns.. Expressed that a positive perspective can improve overall happiness, decrease anxiety, and improve confidence levels. Pt did well to engage in the challenge activity and was an active participant in identifying how perspective impacted ability to complete the task at hand. Shared that focusing on the negatives can make it difficult to effectively communicate mental health needs and result in shutting down as a result. Pt appeared to benefit from increasing understanding of mental health benefits of a positive perspective and potential consequences to progress when perspective is negative or pessimistic. Pt progress noted in her ability to better manage stressors previously causing anxiety and report of decreased depression. Recommended continued IOP tx to promote continued progress, further decrease anxiety, and prevent decompensation.] Narrative Note: []
--- NOTE | 2019-08-29 11:15 | BH.SGPN.GN ---
Behaviors/Verbalizations/Mental Status: []Client alert and oriented, casually dressed and groomed. Eye contact good. Motor activity appropriate. Speech within normal limits. Affect congruent-constricted near the end, mood anxious. Thoughts linear, logical, no signs of hallucinations or delusions. Client Response/Progress/Benefit: []Client responded well to session, attentive and engaged during small group session. Group discussed the mental health benefits of recognizing strengths which included; improved self-esteem, better relationships, and increased resilience. Client reported knowing her strengths has helped client remind herself that she is ?prepared for anything.? Group identified the barriers that have prevented them from acknowledging their strengths and successes. These barriers included; negative thoughts, self-depreciation, mistaken beliefs, and not feeling allowed to acknowledge strengths. Group identified strategies to overcome barriers that prevent them from seeing strengths. These strategies included; keeping track of progress, practicing self-compassion, and challenging distortions. Client able to identify personal strengths she possesses which included; wisdom, honesty, kindness, common sense, love of learning, patience, intelligence, and humor. Appeared to benefit from recognizing personal strengths and identifying strategies to overcome barriers. Will continue IOP tx to prevent decompensation of anxiety symptoms and further increase healthy coping skills.
--- NOTE | 2019-09-03 11:20 | BH.SGPN.GN ---
Behaviors/Verbalizations/Mental Status: []Client alert and oriented, neatly dressed and groomed. Eye contact good. Motor activity restless. Speech within normal limits. Affect constricted, mood anxious, irritable. Thoughts linear, logical, no signs of hallucinations or delusions. Client Response/Progress/Benefit: []Client responded well to session, providing to discussion and activity. Contributed to ongoing discussion of the different conflict resolution styles, drawbacks, and appropriate times of use. Client indicated connecting most with the ?accommodating? and ?competing? approaches when dealing with conflict.? Client reported ?I?ll start off accommodating and then I?ll get mad? which leads client to be competing. Client acknowledged that being competing has produced negative consequences for client. Client engaged in the activity and did well to practice using a collaborative approach as shown by her willingness to share ideas with peers and listen to different perspectives. Client attentive during psychoeducation on different conflict resolution strategies and selected asking herself ?what good will come from this? as the strategy she wants to work on this week. Client appeared to benefit from increasing awareness of her personal conflict resolution style and from learning ways to increase healthy conflict resolution. Progress noted as client continues to report no marijuana use to cope with anxiety. Will continue IOP tx as she continues to report daily panic attacks and mood instability.
--- NOTE | 2019-09-03 14:02 | BH.COMM_ITS ---
Communication Note - Communication with Client Communication Note: Therapist spoke with client's president and chief commercial officer over the phone regarding client's attendance and participation in IOP.
--- NOTE | 2019-09-03 14:02 | BH.COMM ---
Communication Note - Communication with Client Communication Note: Therapist spoke with client's hydrological technical officer over the phone regarding client's attendance and participation in IOP.
--- NOTE | 2019-09-04 10:10 | BH.SGPN.GN ---
Behaviors/Verbalizations/Mental Status: []Client alert and oriented, casually dressed. Eye contact good. Motor activity restless. Speech within normal limits. Affect congruent, mood anxious. Thoughts linear, logical, no signs of hallucinations or delusions. Client Response/Progress/Benefit: []Client responded well to session, active and providing good insight to discussion. Client connected with the group topic of crisis and did well to work with group to define crisis. Client identified examples of potential crisis to include emergencies, hardships, and . Connected with discussion on how coping with external crisis by using unhealthy coping skills could lead to personal crisis. Client shared ?you can prevent a personal crisis.? Group identified unhealthy coping skills to include; substances, isolation, impulsive behaviors, yelling, and pushing people away. Client shared when faced with a crisis she gets a ?screw it? attitude, which makes client?s mental health worse. Group identified warning signs for crisis which included; increased sleep, irritability, decreased appetite, and negative thoughts. Client completed the personal warning signs worksheet and identified crisis warning signs to include; unusual drop in functioning, apathy, and increased risk-taking. Benefited from group by increasing awareness of crisis and personal warning signs. Progress noted as client continues to report sobriety from marijuana and states her depression has reduced. Will continue IOP tx as she continues to experience daily panic attacks. Narrative Note: []
--- NOTE | 2019-09-04 11:11 | BH.SGPN.GN ---
Behaviors/Verbalizations/Mental Status: []Client alert and oriented, casually dressed and groomed. Eye contact fair. Motor activity restless. Speech within normal limits. Affect constricted. mood anxious and dysthymic. Thoughts linear, logical, no signs of hallucinations or delusions. Client Response/Progress/Benefit: []Client responded well to session as evidenced by client listening attentively to others and sharing when prompted. Client identified her warning signs for crisis and gained further awareness of her earliest warning signs. Client recognized that awareness of these warning signs can prevent further crisis and help client utilize healthy coping skills to break the cycle. Client created a crisis action plan to help client better manage earliest warning signs for crisis of apathy, drop in functioning, and increased risk taking. Client?s personal crisis prevention plan included coping skills such as: making list of activities can engage in, list consequences of actions, and reach out to supports. Client appeared to benefit from creating a crisis action plan and increasing self-awareness. Client to continue IOP level of care to decrease anxiety, increase healthy coping, and prevent decompensation. Narrative Note: []
--- NOTE | 2019-09-04 14:20 | BH.MDN ---
Multi-Disciplinary Note - Note 30-min Individual Time Started:: 09:16 Date: 09/04/19 Purpose of session/treatment goals addressed:: The purpose of this session was to increase awareness of warning signs, symptoms, and triggers for anxiety. Another goal was to learn coping skills to manage emotions and thoughts associated with anxiety. Other topics included: learning about [employer] program and setting small goals. Eye Contact:: Good Motor Activity:: Appropriate Appearance:: Casual Speech:: Appropriate Mood:: Euthymic, Anxious Affect:: Congruent Thoughts:: Linear, Logical, No evidence of hallucinations/delusions noted Staff Interventions:: Therapist used active listening and open-ended questions to address current stressors, symptoms, and use of coping skills. Therapist provided psychoeducation on anxiety to help client increase awareness of warning signs and thought patterns associated with anxiety. Therapist gave client an article on marijuana withdrawal and anxiety. Therapist helped client identify self-care and calming techniques client can incorporate into her daily routine. Therapist used strengths perspective to empower client and gently challenged client?s unrealistic expectations. Therapist gave client homework to practice yoga each morning. Client Response:: Client responded well to session, open to meeting with therapist. Client reported she feels less depressed and that she has been trying to use deep breathing to calm her anxiety, but she continues to feel panic symptoms daily. Client receptive to learning about marijuana withdrawal. Read and discussed an article on the connection between chronic marijuana use and increased anxiety after stopping daily use. Client shared she feels like I should be better by now, the medication isn't working. Receptive to challenging her unrealistic expectations for progress and able to recognize that replacing her old unhealthy coping skills with new, healthy skills will take time. Client and therapist discussed the benefits of incorporating more self-care and mindfulness strategies throughout her day, rather than waiting to use them when she is in a panic. Client shared yoga and nature have been helpful for her in the past. Client receptive to practicing yoga in the morning before she gets her kids ready for school. Risks/Concerns:: Client denies any suicidal ideations, plan, or intent as of 09/04/19. Anxious, but future oriented throughout session. Progress Toward Goals/Plan:: Client is demonstrating progress towards her treatment goals as shown by her self-report of reduced depressive symptoms and feeling more positive. Client continues to struggle with panic symptoms, racing thoughts, and anxiety daily. Client and therapist discussed marijuana withdrawal and realistic expectations for progress. Client receptive to learning more about the [employer] program and practicing calming coping skills daily. Will continue IOP tx to further increase healthy coping skills, reduce panic symptoms, and improve daily functioning. Time Stopped:: 09:48
--- NOTE | 2019-09-08 08:57 | BH.COMM_ITS ---
Communication Note - Communication with Client Communication Note: [facility] transportation called and reported client did not show this morning for her scheduled transportation. This is not client's first time no call/no showing for her scheduled transportation. This therapist will discuss attendance policy with client during client's next individual session.
--- NOTE | 2019-09-08 09:03 | BH.SGPN.GN ---
Behaviors/Verbalizations/Mental Status: [Eye contact is good. Motor activity is appropriate. Appearance is casual. Speech is Appropriate. Mood is anxious. Affect is congruent. Thoughts are linear and logical. No evidence of psychosis. Reviewed daily check in sheet and no reports of suicidal ideations or intent.] Client Response/Progress/Benefit: [Pt was late to session, however did well to remain an active participant in group discussion, providing input throughout. Emotion for today is ?anxious?. She shared that over the weekend she had ?stayed in bed? and not done much as it was the 2-year anniversary of her brother?s . Pt indicated current mental health wins include getting out of bed and going for a walk yesterday rather than continuing to isolate. Additional win noted as waking up early this morning and doing yoga prior to coming in for IOP group. Current stressor indicated as being unable to communicate with her other brother who is in [place] [facility]. Pt was receptive and appeared to benefit from group support, encouragement, and feedback. Will continue in IOP tx to prevent decompensation, decrease anxiety, and increase healthy coping skills.] Narrative Note: []
--- NOTE | 2019-09-08 10:20 | BH.SGPN.GN ---
Behaviors/Verbalizations/Mental Status: [] Eye contact is poor. Motor activity is appropriate. Appearance is casual. Speech is Appropriate. Mood is depressed/irritable. Affect is flat. Thoughts are linear and logical. No evidence of psychosis. Client Response/Progress/Benefit: [] Pt did not participate in group discussion. Passive participant in group activity as she was quiet and distracted. Appeared distracted at times while peers worked together to define pitfalls in mental health which group identified were; hidden or unsuspected obstacles, emotional traps, when we defeat ourselves, and unforeseen obstacles which impact progress. Group discussed the impacts of pitfalls which can cause one to; give up, revert back to unhealthy coping, isolate, define oneself as a failure. Due to limited participation in group it is unknown if she was able to make connections between activity and MH. Narrative Note: []
--- NOTE | 2019-09-08 11:21 | BH.SGPN.GN ---
Behaviors/Verbalizations/Mental Status: []Client alert and oriented, neatly dressed and groomed. Eye contact good. Motor activity restless. Speech within normal limits. Affect constricted, mood anxious. Thoughts linear, logical, no signs of hallucinations or delusions. Client Response/Progress/Benefit: []Client receptive of session, engaged throughout AEB client providing positive input to group discussion. Processed activity with group and connected it to overcoming personal pitfalls in life. Client completed a worksheet where she identified personal pitfalls impacting mental health progress. Identified pitfalls as: avoiding problems, trying to control things, racing thoughts, and self-sabotage by putting herself in ?situations I should not be in.? Client recognized that with awareness and use of healthy coping skills, it is possible to prevent or better manage pitfalls. Client stated she will work on preventing pitfalls by using the SHAHRAM (accomplish, closeness, enjoyment) strategy. Client reported this will help because it will promote motivation and give client a sense of accomplishment. Benefited from identifying personal pitfalls and strategies to overcome these pitfalls. Progress noted as client reports reduced hopelessness and depression. Will continue IOP tx as client continues to report panic symptoms and difficulty regulating her anxiety consistently. Narrative Note: []
--- NOTE | 2019-09-09 09:43 | BH.COMM ---
Communication Note - Communication with Client Communication Note: Client called to cancel her scheduled individual and group IOP sessions today due to her son being sick. Client reports plan to attend group tomorrow 09/10/19.
--- NOTE | 2019-09-10 09:05 | BH.SGPN.GN ---
Behaviors/Verbalizations/Mental Status: []Client alert and oriented, casually dressed and groomed. Eye contact good. Motor activity appropriate. Speech within normal limits. Affect constricted, mood anxious. Thoughts linear, logical, no signs of hallucinations or delusions. Reviewed client?s symptom tracker, no risk for suicidal ideation, plan, or intent as of 09/10/19. Client Response/Progress/Benefit: []Client responded well to session, receptive to supportive statements from peers. Client reports feeling ?anxious but more positive? today. Client identified her mental health positive today which was that client got up on Sunday and clean and organized her house. Client reported she was feeling depressed because this weekend was the anniversary of her brother?s . However, client shared she used opposite action and instead of isolating, she took action which made her feel accomplished. Client stated her stressor today is feeling anxious about her upcoming probation appointment. Appeared to benefit from reflecting on her use of opposite action. Progress noted as shown by client?s report of reduced depressive symptoms. Will continue IOP tx to prevent decompensation of anxiety symptoms and improve mood stability Narrative Note: []
--- NOTE | 2019-09-10 10:20 | BH.SGPN.GN ---
Behaviors/Verbalizations/Mental Status: []Client alert and oriented, casually dressed and groomed. Eye contact fair. Motor activity restless. Speech within normal limits. Affect flat, mood anxious. Thoughts linear, logical, no signs of hallucinations or delusions. Client Response/Progress/Benefit: []Client was active during the beginning of session, but then became withdrawn. Client appeared to connect with the quote as shown by her report that the process of achieving one?s goals is what makes it rewarding. Client worked together with group to define goals and identify the benefits of developing goals which included; reduced depression, reduced anxiety, increased self-esteem, creates good feelings, improves relationships, and keeps people moving forward. Group also identified negative consequences of not setting goals to be; staying stuck, worse relationships, more problems, and maintaining unhealthy cycles. Appeared distracted during education on developing SMART goals. Benefited from increasing awareness of goal-setting methods and practicing goal setting. Progress noted as client?s DSM-5 scores have decreased since intake, but she continues to report high anxiety and panic. Will continue IOP tx to promote further reduction of symptoms and improve ability to regulate emotions. Narrative Note: []
--- NOTE | 2019-09-10 13:44 | BH.MDN ---
Multi-Disciplinary Note - Note 45-min Individual Time Started:: 11:50 Date: 09/10/19 Purpose of session/treatment goals addressed:: The purpose of this session was to address current symptoms, application of coping skills, and review progress. Another goal was to challenge anxious thoughts and identify strategies to reduce anxiety during client's probation appointment. Other topics included filling out the [employer] application. Eye Contact:: Good Motor Activity:: Appropriate Appearance:: Casual Speech:: Appropriate Mood:: Anxious Affect:: Congruent Thoughts:: Linear, Logical, No evidence of hallucinations/delusions noted Staff Interventions:: Therapist used active listening and open-ended questions to address current stressors, symptoms, and use of coping skills. Therapist assisted client in filling out the application for the [employer] program. Therapist used the DSM-5 self-assessment scale to help client reflect on areas of progress. Therapist assisted client in creating a plan to reduce anxiety and promote higher potential for a positive experience at her probation appointment. Therapist reviewed healthy coping skills to manage anger and negative thoughts. Client Response:: Client responded well to session, open to meeting with therapist. Client filled out the application to participate in the [employer] program. Client completed the DSM-5 and reflected on her progress since starting IOP. Client was smiling and shared no way when she saw her symptoms of depression and anxiety both decreased. Client's anxiety only decreased by one point, but she shared that's still progress. Client reported she has been doing better with being positive and hearing other people's recovery stories has been motivating. Client continues to have anxious thoughts about her upcoming probation meeting. Client able to recognize that some of her thoughts are probable, but some are unrealistic. For the probable thoughts, client was able to problem-solve solutions and come up with a plan. Client was able to challenge the unrealistic thoughts by looking at the evidence against the thoughts. Client and therapist discussed ways client can cope with her anxiety prior to her probation appointment. Client shared she plans to do yoga and practice deep breathing that morning. Client and therapist also identified things client wants to avoid during her probation appointment that could escalate her anger or anxiety. Risks/Concerns:: Client denies any suicidal ideations, plan, or intent as of 09/10/19. Client future oriented and hopeful about her future. Progress Toward Goals/Plan:: Client is demonstrating progress towards her treatment goals as shown by her self-report of reduced depressive symptoms, application of healthy coping skills, and reduced DSM-5 scores. Client reports reduced intensity of panic symptoms and less anger. Client is anxious about her probation appointment this Sunday, but she was able to identify coping skills to help her manage anxiety and anger. Client receptive to learning more about the [employer] program and practicing calming coping skills daily. Will continue IOP tx to further increase healthy coping skills and promote gains. Time Stopped:: 12:30
--- NOTE | 2019-09-10 14:23 | BH.MTP_ITS ---
Treatment Plan Review Date of Admission:: 08/12/19 Date of Treatment Plan Review:: 09/10/19 Admitting Diagnoses:: Major depressive disorder recurrent severe without psychosis F33.2, generalized anxiety disorder, PTSD, Cluster B traits. Current Diagnoses:: Major depressive disorder recurrent severe without psychosis F33.2, generalized anxiety disorder, PTSD, Cluster B traits. Patient's Response to Treatment:: Client responded well to treatment thus far as shown by her active participation and reduction of DSM-5 symptoms at review. Client?s attendance is mostly consistent, however, at the beginning of treatment client did struggle to get to IOP consistently. When client canceled IOP it was due to her children being sick. Client is an active group member who often contributes to discussions and provides encouragement to peers. Client reports that being in group helps client gain different perspectives and connect with peers. In individual sessions, client is receptive to learning new coping skills and gentle challenging from therapist. 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 Client reports she has been practicing deep breathing, yoga, and positive self-talk to better manage her symptoms. At review, client?s DSM-5 symptom scores decreased overall by a total of 19 points. Client?s DSM-5 scores for depression decreased, from 6/8 at admission to 3/8 at review. Additionally, client?s suicidal ideation decreased from admission to review going from 1/4 to 0/4. Client?s anxiety has decreased since admission as well going from 12/12 to 11/12 at review. Status of Current Problems and Symptoms: Client's symptoms of anxiety and depression have decreased since admission, but she continues to report experiencing anxiety more than half the days of the week. Client continues to report symptoms of panic most days, although of reduced duration. Client also endorses racing thoughts, uncontrollable worry about probation, and difficulty concentrating. Problem #1 Problem Name:: Pt. will reduce frequency, intensity, and duration of anxiety and panic Status of Goals:: Objective 1- partially complete. Client can identify common stress reactions and symptoms related to trauma and can report healthier coping skills. However, client can benefit from more consistent application of healthy coping skills. Objective 2- In progress. Client?s DSM-5 scores for anxiety have decreased since admission, however, her symptoms still score in the moderate- severe range. Client also continues to report panic symptoms daily, but of decreased duration. Client reports utilizing calming coping skills including yoga, deep breathing, and positive self-talk. Team Recommendations:: Client encouraged to continue working on this treatment goal to reinforce healthy coping skills and continue to decrease anxiety and panic symptoms. Client and therapist currently working on calming coping skills as well as thought challenging. Client encouraged to maintain sobriety from substances. Client also encouraged to follow up with outpatient counseling and case management. Problem #2 Problem Name:: Pt. will decrease depressive symptoms, crying spells, and low motivation Status of Goals:: Objective 1-complete, but ongoing work recommended. Client can identify healthy coping skills to better manage depression including opposite action and setting small goals. Client?s DSM-5 scores for depression decreased by 50% since admission. Objective 2- Partially complete. Client working on identifying negative thoughts and replacing them with more positive messages. However, client can continue to benefit from ongoing work on this objective. Team Recommendations:: Client encouraged to continue working on this treatment goal to reinforce healthy coping skills and continue to decrease depressive s ymptoms. Client and therapist currently working on setting small goals and challenging negative self-talk. Client encouraged to maintain sobriety from substances. Client also encouraged to follow up with outpatient counseling and case management.
--- NOTE | 2019-09-11 14:04 | BH.COMM ---
Communication Note - Communication with Client Communication Note: Client called to cancel her scheduled IOP group session today due to conflicting medical appointments for her son. Client to attend group next week.
--- NOTE | 2019-09-15 08:02 | BH.COMM ---
Communication Note - Communication with Client Communication Note: This therapist spoke with client on the phone. Client is unsure what days she can attend IOP this week as client's son is having surgery tomorrow. Client to keep IOP staff updated throughout the week.
== END 2019-09-18 23:59 ==
LOC: BHIOP 09:00
PROVIDERS: Referring Provider Psychiatry & Neurology Psychiatry; Visit Provider Psychiatry & Neurology Psychiatry
DX: F33.2 Major depressive disorder, recurrent severe without psychotic features (principal); F41.1 Generalized anxiety disorder; F43.10 Post-traumatic stress disorder, unspecified; F12.90 Cannabis use, unspecified, uncomplicated
CPT/HCPCS: 99214; H0035; H2012; H2020; 90832; 90834; 90847

== ENCOUNTER 2019-09-23 09:00 | Outpatient (RCR) | payer MEDICAID, SELFPAY ==
--- NOTE | 2019-09-23 09:07 | BH.SGPN.GN ---
Behaviors/Verbalizations/Mental Status: []Client alert and oriented, casually dressed and groomed. Eye contact good. Motor activity appropriate. Speech within normal limits. Affect congruent, mood anxious. Thoughts linear, logical, no signs of hallucinations or delusions. Reviewed client?s symptom tracker, no risk for suicidal ideation, plan, or intent as of 09/23/19. Client Response/Progress/Benefit: []Client responded well to session, receptive to feedback from peers and attentive. Client reports feeling ?anxious? today. Client shared her son got his tonsils out last week and he was ?like a again? because he was up throughout the night. Client stated thinking about her son in pain causes client to feel anxious. A peer in the group also had a child get their tonsils out and was able to normalize this for client and reassure that nothing was wrong. Client had several mental health including setting a boundary with her ex-boyfriend, using calming coping skills this morning, and effectively managing conflict last week. Client reflected that she is getting better with managing her anxiety and anger. Appeared to benefit from connecting with peers and normalizing her worries. Progress noted in client?s generalization of coping skills. Will continue IOP tx to further decrease anxiety and improve daily functioning. Narrative Note: []
--- NOTE | 2019-09-23 10:20 | BH.SGPN.GN ---
Behaviors/Verbalizations/Mental Status: []Client alert and oriented, casually dressed and groomed. Eye contact fair. Motor activity restless. Speech within normal limits. Affect constricted, mood anxious and dysthymic. Thoughts linear, logical, no signs of hallucinations or delusions. Client Response/Progress/Benefit: []Pt passive participant AEB pt providing limited input during discussion however appeared to listen attentively to peers. Pt appeared to connect with others comments about the negative impact of defining self by mental illness. Group identified social stigma can come from how the media, society, and upbringing portray mental illness. Group identified media and society portray mental health as: dangerous, negative, not good enough, abnormal, and romanticize it. Pt seemed to agree with others that mental health stigma contributes to people hiding the fact they have any mental health problems out of fear of judgment. Pt appeared to benefit from increased awareness of how internal stigma can impact personal functioning. Pt progressing with reporting decreased anxiety and improved use of healthy coping skills. Pt to continue IOP level of care to maintain gains, continue use of healthy coping skills and prevent decompensation. Narrative Note: []
--- NOTE | 2019-09-23 13:55 | BH.MDN ---
Multi-Disciplinary Note - Note 30-min Individual Time Started:: 11:50 Date: 09/23/19 Purpose of session/treatment goals addressed:: The purpose of this session was to address current symptoms, application of coping skills, and combating distortions. Another goal was to practice thought challenging and review healthy coping skills. Eye Contact:: Good Motor Activity:: Appropriate Appearance:: Casual Speech:: Appropriate Mood:: Anxious Affect:: Constricted Thoughts:: Linear, Logical, No evidence of hallucinations/delusions noted Staff Interventions:: Therapist used active listening and open-ended questions to address current stressors, symptoms, and use of coping skills. Therapist used cognitive restructuring techniques to assist client in combating distortions reinforcing self-doubt and anxiety. Therapist gave client homework to practice challenging her perspective on her progress to combat mental filtering. Therapist reviewed healthy coping skills to manage anxiety and negative thoughts. Client Response:: Client responded well to session, open to meeting with therapist. Client reported she is currently feeling somewhat disappointed and down because her anxiety and panic symptoms continue daily. Client shared I'm starting to lose hope that I won't get better which concerns client that her depression will come back. Client receptive to thought challenging and reframing her perspective on progress. Client and therapist discussed client's journey of progress and challenged mental filter distortions. Client recognized that although her anxiety symptoms have not decreased, she has been able to regulate her emotions better which has helped client communicate more effectively and function. Client and therapist discussed how it will continue to take time for client to retrain her brain and cope with anxiety without marijuana use. Client acknowledged that she used to use marijuana before ?I literally did anything? so without it even ?easy tasks? seem overwhelming. Client and therapist discussed client giving herself 20 minutes before she engages in a stressful task during which time client will practice a calming coping skill. Client receptive to homework of journaling positive changes. Risks/Concerns:: Client denies any suicidal ideations, plan, or intent as of 09/23/19. Future oriented throughout session. Progress Toward Goals/Plan:: Client is demonstrating progress towards her treatment goals as shown by her application of healthy coping skills, reduced anger, and reduced DSM-5 scores since admission. However, client continues to report daily panic attacks and ongoing anxiety symptoms. Due to her ongoing symptoms client is currently feeling less optimistic about her progress which is causing an increase of depression this week. Client was able to combat some of these distortions during session and she was receptive to homework provided by therapist. Will continue IOP tx to prevent decompensation, challenge distortions, and further improve daily functioning. Time Stopped:: 12:12
--- NOTE | 2019-09-23 14:03 | BH.COMM_ITS ---
Communication Note - Communication with Client Communication Note: This therapist spoke with client's public records officer on the phone. Therapist and public records officer discussed updates, attendance, and client's progress.
--- NOTE | 2019-09-23 14:03 | BH.COMM ---
Communication Note - Communication with Client Communication Note: This therapist spoke with client's gift officer on the phone. Therapist and gift officer discussed updates, attendance, and client's progress.
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
--- NOTE | 2019-09-24 10:22 | BH.SGPN.GN ---
Behaviors/Verbalizations/Mental Status: []Client alert and oriented, neatly dressed and groomed. Eye contact fair. Motor activity appropriate. Speech within normal limits. Affect congruent, mood euthymic/anxious. Thoughts linear, logical, no signs of hallucinations or delusions. Client Response/Progress/Benefit: []Client was an active participant as evidenced by providing input through session and listening attentively to peers. The group discussed the quote and how the emotion anger is not good or bad, but one can respond to anger in healthy or harmful ways. Client worked with the group to define anger and its causes, as well as the internal and external impacts of anger. Group identified potential consequences of unhealthy management of anger to include: losing relationships, guilt, increased stress, and worsening mental health symptoms. Client identified underlying factors of her anger which included: feeling helpless, guilt, grief, fear, feeling judged, and being anxious. Client stated yelling, being impatient, being aggressive, shutting down, and crying are common responses she has when feeling angry. Benefited from group by increasing awareness of the negative impacts of unmanaged anger and underlying factors that contribute to her personal anger. Progress noted as client reports reduced depressive symptoms, but she continues to report moderate to severe anxiety. Will continue IOP tx to prevent decompensation of anxiety symptoms and improve mood stability. Narrative Note: []
--- NOTE | 2019-09-24 12:12 | PCM.BH.PN ---
Progress Note Progress Note: History of Present Illness/Interim History: [] Patient is a 23-year-old single -[place] female with a history of anxiety, depression and PTSD who was seen in follow-up at the [facility] program. She was last seen 4 weeks ago. The patient states that her mood is much improved since starting the IOP program. Her anxiety remains somewhat severe however. She says she is still having panic attacks 3 or 4 times a day. She is tolerating the venlafaxine well at 75 mg p.o. daily and since it is been about a month that she has been on this we discussed increasing the dose. She has not used any marijuana at all since last visit. She feels that she is learning that the drug use is not good for her. She feels she is benefiting from the IOP program and is using valuable skills that she learns. She denies any suicidal or homicidal ideation. Current Psychiatric Medications: [] Effexor XR 75 mg p.o. daily (x4 weeks); gabapentin 100 mg p.o. 3 times daily Mental Status Examination: [] Patient is a 23-year-old single -[place] female who appears normal for stated age. She is casually dressed and groomed with good hygiene and is cooperative during the interview. She has mild psychomotor agitation with a movement of her knee bouncing up and down during the interview. She speech is normal rate and rhythm and fluent. Mood is euthymic today. Affect is full but also consistent with some anxiety. Thought processes goal directed and organized. Thought content: No evidence of suicidal or homicidal ideation. No evidence of hallucinations or delusions. Judgment: Improving. Impulsivity: Mild to moderate. Insight: Improving. 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 The risks, options, possible side effects and complications of medications were discussed with the patient and she understands and accepts these. She felt safe during the interview and if she does not feel safe she will contact us at the [facility] or will go to the emergency room. She will continue her current medications and we will increase the Effexor XR to 150 mg p.o. daily. Prescription was given for this. She will continue to abstain from any drug use whatsoever. I will follow-up with the patient in 3 weeks or as needed.
--- NOTE | 2019-09-25 10:20 | BH.SGPN.GN ---
Behaviors/Verbalizations/Mental Status: []Client alert and oriented, casually dressed and groomed. Eye contact fair-looking at her phone at times. Motor activity appropriate. Speech within normal limits. Affect flat, mood anxious. Thoughts linear, logical, no signs of hallucinations or delusions. Client Response/Progress/Benefit: []Client responded somewhat well to session, appearing distracted at times. Client agreed with peers that certain ?rowe? in life are placed by external circumstance while other ?rowe? are put up by how one carol with those circumstances. Listened to discussion of things that can keep people feeling trapped or stuck in life including; fixed thinking, not letting people in, alcohol and drugs, lack support, and lack of confidence. Group discussed the connection between thoughts, emotions, and behaviors as well as how negative thinking can keep a person stuck. Client attentive during psychoeducation on maintenance cycles. Client able to identify negative thoughts that have reinforced depression and kept client feeling trapped. Client shared negative thoughts that have kept him stuck which included: ?I hate my life. I wanna , why me? Why so many traumas? What?s the point of trying at all? I won?t succeed.? Appeared to benefit from gaining awareness of how negative thoughts reinforce mental health symptoms and keep people stuck. Progress noted in client?s report of reduced depressive symptoms since admission, but she continues to struggle with panic. Narrative Note: []
--- NOTE | 2019-09-25 11:22 | BH.SGPN.GN ---
Behaviors/Verbalizations/Mental Status: []Client alert and oriented, casual in appearance. Eye contact fair. Motor activity restless. Speech within normal limits. Affect congruent, mood anxious. Thoughts linear, logical, no signs of hallucinations or delusions. Client Response/Progress/Benefit: []Client responded well to session, quiet, participating when prompted. Client appeared to connect with how negative thinking can keep a person stuck. Client identified a negative thought that has kept her stuck. Client?s thought was ?Why me? Why so many traumas? Nothing good comes to me.? Client stated when she has these thoughts she becomes unmotivated, depressed and wants to give up. Client able to reframe the thought to ?Life is beautiful, there are many blessings coming.? Client shared this thought would improve her mental health because it would help her feel more positive and get more things accomplished. Client appeared to benefit from practicing challenging negative thinking. Client progressing with decreased anxious symptoms, improved awareness of unhealthy thought patterns and applying healthy skills outside treatment environment. Client to continue IOP to maintain gains, continue utilization of healthy coping, and prevent decompensation. Narrative Note: []
--- NOTE | 2019-09-30 09:08 | BH.SGPN.GN ---
Behaviors/Verbalizations/Mental Status: [Client alert and oriented, casual dress, hygiene tended to. Eye contact fair to good. Motor activity appropriate. Speech within normal limits. Affect congruent, mood euthymic and anxious. Thoughts linear, logical, no signs of hallucinations or delusions. Reviewed client?s symptom tracker, no signs of suicidal ideation, plan, or intent as of today. ] Client Response/Progress/Benefit: [Pt receptive of session and actively engaged throughout. She did well to provide supportive feedback to the group as well as openly discuss her own thoughts, feelings, and stressors. Pt reports spending time with her children in the snow this morning and is feeling more positive as a result. She indicated that she had been struggling with anxiety related to an upcoming court date but is actively working to challenge distorted and catastrophic thoughts patterns. Shared instead trying to focus on all of the effort she has put into her own progress rather than the negative thoughts. Identified additional win as getting to IOP tx this morning despite having a busy morning. Pt progress noted in her ability to use anxiety management skills and increased levels of regulation. Pt recommended continued IOP tx to prevent decompensation, decrease anxiety, and promote healthy change behaviors.] Narrative Note: []
--- NOTE | 2019-09-30 10:25 | BH.SGPN.GN ---
Behaviors/Verbalizations/Mental Status: []Client alert and oriented, casually dressed and groomed. Eye contact good. Motor activity appropriate. Speech within normal limits. Affect congruent, mood anxious. Thoughts linear, logical, no signs of hallucinations or delusions. Client Response/Progress/Benefit: []Client receptive of session, attentive in discussion and activity. Client discussed the quote and was often nodding to comments made by peers. Client helped group identify the consequences of not effectively managing emotions which included; strained relationships, guilt, increased negative thinking, resentment, blowing things out of proportion, and impulsive behaviors. Group identified barriers that impact one?s ability to communicate when emotions are high. These barriers included; acting on impulse, shutting down, physical aggression, assumptions, and misinterpretations. The group also discussed how trauma impacts one?s ability to regulate emotions and client connected with this. Client participated in the activity and did well to regulate her emotions. Client reported she pushed herself to do the role that would make her the most anxious because she wanted to practice coping with her anxiety. Client appeared to benefit from increasing awareness of how emotions can impact communication and practicing in the moment coping skills. Progress noted as client reports improved ability to manage symptoms. Will continue IOP tx to promote gains and further decrease anxiety symptoms. Narrative Note: []
--- NOTE | 2019-09-30 14:51 | BH.MDN_ITS ---
Multi-Disciplinary Note - Note 45-min Individual Time Started:: 11:42 Date: 09/30/19 Purpose of session/treatment goals addressed:: The purpose of this session was to address current symptoms, stressors, and application of coping skills. Another goal was to practice thought challenging and begin setting up outpatient services. Other topics included probation. Eye Contact:: Good Motor Activity:: Appropriate Appearance:: Casual Speech:: Appropriate Mood:: Anxious Affect:: Congruent Thoughts:: Linear, Logical, No evidence of hallucinations/delusions noted Staff Interventions:: Therapist used active listening and open-ended questions to address current stressors, symptoms, and use of coping skills. Therapist used strengths perspective to empower client on her application of coping skills and ability to challenge her perspective. Therapist used cognitive restructuring techniques to assist client in combating distortions reinforcing self-doubt and anxiety about her future. Therapist and client called the [facility] to help client set up outpatient psychiatry. Therapist reviewed healthy coping skills and supports to promote mood stability, help with client?s probation, and maintain gains. Client Response:: Client responded well to session, open to meeting with therapist. Client reports her mood has improved since last session and that her perspective has been changed. Client shared talking to a peer from [facility] helped client challenge her thinking. Client has also been doing yoga every morning which has been helping client start her mornings with a calmer mind. Client willing to set up outpatient services and called with therapist during session to set up an appointment at the [facility]. Client would also like this therapist to contact the [facility] child welfare caseworker and have the child welfare caseworker call client to set up an appointment. Client shared although she feels better, she still has worries about her future and completing all the requirements for her probation. Client able to recognize that some of her worries are distorted and client challenged those thoughts with therapist's help. Client acknowledged that she can complete her requirements, but it will take setting small goals, communication, and reaching out to her supports. Client also acknowledged that the stress of probation will not be there forever which helps client remember that if she can get through this, it will get easier. Client and therapist reviewed coping skills to reduce anxiety and manage negative thoughts. Risks/Concerns:: Client denies any suicidal ideations, plan, or intent as of 09/30/19. Future oriented throughout session. Progress Toward Goals/Plan:: Client is demonstrating progress towards her treatment goals as shown by her increased application of healthy coping skills, ability to reframe her anxious thoughts, and improved functioning since admission. Client shared her outlook is more positive this week and she was willing to set up aftercare. Client continues to endorse anxiety and panic symptoms, ruminations, and avoidance behaviors. However, client self-reports more hope for herself and her ability to manage her mental health. Will continue IOP tx to prevent decompensation, challenge distortions, and further improve daily functioning. Time Stopped:: 12:23
--- NOTE | 2019-10-07 09:10 | BH.SGPN.GN ---
Behaviors/Verbalizations/Mental Status: [] Eye contact is good. Motor activity is appropriate. Appearance is casual. Speech is Appropriate. Mood is anxious. Affect is congruent. Thoughts are linear and logical. No evidence of psychosis. Reviewed daily check in sheet and no reports of suicidal ideations or intent. Client Response/Progress/Benefit: [] Pt participated at times during the group discussion. Emotion for today is anxious. Shared with the group some recent and upcoming positives. Attempted a new routine this AM in which she completed yoga this AM prior to her kids waking up. She found this very helpful mentally and physically. Progress noted per pt report. Short check-in. Benefited from group support and encouragement. Will continue in IOP to prevent decompensation, increase healthy coping skills, and decrease anxiety. Narrative Note: []
--- NOTE | 2019-10-07 10:17 | BH.SGPN.GN ---
Behaviors/Verbalizations/Mental Status: [Client alert and oriented, casual dress, hygiene tended to. Eye contact fair to good. Motor activity appropriate. Speech quiet, within normal limits. Affect congruent, mood euthymic. Thoughts linear, logical, no signs of hallucinations or delusions.] Client Response/Progress/Benefit: [Pt a mostly passive participant, though engaged in session as evidenced by pt listening during discussion, taking notes, and nodding providing increased input than typical baseline throughout. Pt nodded in agreement as group discussed that people run away from problems because fear, frustration, and guilt. Pt declined to shared what specifically contributes to financial stressors and shared making conscience efforts to improve upon personal anxiety management skills during such times. He shared that this has led to anger/agitation and increase fear and temptation to shut down rather than begin addressing personal problems. Pt worked with peers to brainstorm the components of A,B,C,D,E problem solving method and did well to begin to apply such during the group experiential activity, as well as take on a supportive role during such. Pt seemed to benefit from learning about problem solving method and rehearsing problem-solving skills in the moment. Progress noted in ability to connect activity to personal stressors experienced in own daily life. Pt to continue IOP level of care to decrease mental health symptoms contributing to anxiety and emotion dysregulation, increase utilization of healthy coping, and prevent decompensation.] Narrative Note: []
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
--- NOTE | 2019-10-08 09:07 | BH.SGPN.GN ---
Behaviors/Verbalizations/Mental Status: [Client alert and oriented, casual dress, hygiene tended to. Eye contact good. Motor activity appropriate. Speech within normal limits. Affect congruent, mood euthymic and anxious. Thoughts linear, logical, no signs of hallucinations or delusions. Reviewed client?s symptom tracker, no signs of suicidal ideation, plan, or intent as of today. ] Client Response/Progress/Benefit: [Pt receptive of session and actively engaged throughout. She did well to provide supportive feedback to the group as well as openly discuss her own thoughts, feelings, and stressors. Pt reports her current emotion is ?anxious? as she fears she may have a mouse in her apartment, and indicated that this is also her current stressor. Shared that she is dealing with the stressor in more rational ways than she might have in the past and is able to apply problem solving strategies rather than escalate to point of panic which is a mental health win for her. Additional win identified as using positive self-talk to passenger coach driver her through managing the stressor. Pt progress noted in her ability to use anxiety management skills during times of unexpected stressors. Pt recommended continued IOP tx to continue to prevent decompensation, decrease anxiety, and promote healthy change behaviors.] Narrative Note: []
--- NOTE | 2019-10-08 10:25 | BH.SGPN.GN ---
Behaviors/Verbalizations/Mental Status: []Client alert and oriented, casually dressed and groomed. Eye contact fair. Motor activity appropriate. Speech within normal limits. Affect constricted, mood euthymic. Thoughts linear, logical, no signs of hallucinations or delusions. Client Response/Progress/Benefit: []Client responded somewhat well to session, attentive at times, but mostly quiet. Listened the group to define and identify differences between internal and external conflict. Client agreed with peers that conflict is inevitable and that it is important to have skills to effectively manage conflict. Group reported the benefits of addressing conflict included improved relationships and better mental health. Group identified and discussed consequences of not address conflict in healthy ways which included: guilt, negative consequences, poor relationships, staying in one?s comfort zone, and rumination. Client agreed with peers that avoiding conflict only causes more problems. Attentive during psychoeducation on different conflict styles such as avoiding, accommodating, competing, and collaborative. Benefited as she was able to identify and define conflict as well as increase awareness of how conflict style impacts mental health. Will participate in one more day of IOP to establish aftercare and reinforce healthy coping skills. Narrative Note: []
--- NOTE | 2019-10-08 11:41 | PCM.BH.PN ---
Progress Note Progress Note: History of Present Illness/Interim History: [] Patient is a 24-year-old single -[place] female with a history of anxiety, depression and PTSD who is seen today in follow-up at the [facility] program. She was last seen 2 weeks ago and at that time her venlafaxine or Effexor was increased to 150 mg p.o. daily. Patient states that her mood is much better she feels that she is minimally depressed at this point. She is functioning better at home and she feels she is learning valuable skills in the IOP program. Her anxiety continues to be fairly severe however. She is continues to have panic attacks 3 times a day and nailbiting is persistent. She is doing breathing exercise and yoga to help with relaxation and to help abort the panic attacks. She is still sober from all marijuana use. She denies any thoughts of , suicidal ideation, or homicidal ideation. Feels she has made significant progress during her IOP experience. Current Psychiatric Medications: [] Effexor XR 150 mg p.o. daily (X space 2 weeks); gabapentin 100 mg p.o. 3 times daily Mental Status Examination: [] She is a 23-year-old -[place] female who appears casually dressed and groomed with good hygiene. She is cooperative and pleasant during the interview. She has mild psychomotor agitation with some mild ringing of her hands during the interview. Eye contact is good and speech is normal rate and rhythm with no pressure. Mood is euthymic. Affect is full and pleasant but also consistent with some mild anxiety. Thought process is goal-directed and organized. Thought content: No evidence of suicidal or homicidal ideation. No evidence of hallucinations or delusions. Judgment: Intact. Impulsivity low. 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 She felt safe during the interview and if in any time she does not feel safe she will contact her providers or go to the emergency room. She will continue the Effexor XR at 150 mg p.o. daily as she has only been on this dose for 2 weeks and she understands her anxiety will continue to improve. The gabapentin was increased to 200 mg p.o. 3 times daily. The risks, side effects, possible complications of the medications were discussed with the patient and she understands and accepts this. A prescription was given for the gabapentin 100 mg tablets for her to take 200 mg p.o. 3 times daily. She will continue to abstain from all drug use. Patient felt has an appointment with her psych provider in 6 days and will continue to follow-up with them.
--- NOTE | 2019-10-08 13:47 | BH.MDN ---
Multi-Disciplinary Note - Note 30-min Individual Time Started:: 11:30 Date: 10/08/19 Purpose of session/treatment goals addressed:: The purpose of this session was to review client's progress and review strategies that will promote mood stability and gains made in IOP. Another goal was to discuss discharge recommendations. Eye Contact:: Good Motor Activity:: Appropriate Appearance:: Casual Speech:: Appropriate Mood:: Euthymic Affect:: Congruent Thoughts:: Linear, Logical, No evidence of hallucinations/delusions noted Staff Interventions:: Therapist used open-ended questions to explore client's thoughts on personal progress. Therapist reviewed supports, warning signs, and coping skills with client to promote gains and prevent setbacks. Therapist discussed aftercare plan with client and used strengths-perspective to empower client on the goals client has accomplished. Therapist discussed the benefits of ongoing maintenance and use of daily coping skills. Therapist gave client a quote collage for closure. Client Response:: Client responded well to session, open to meeting with therapist. Client reflected on her progress since starting IOP and shared belief that she has done a ?complete 180?. Client reports increased confidence in herself, improved ability to cope with daily stressors, and denies depressive symptoms. Client stated she has been able to rewire her brain and now it is a lot easier for client to identify mental health wins and challenge negative thoughts. Client has been able to maintain sobriety from marijuana and use healthy coping skills to manage anxiety and depression. Client reported ?I can?t believe I didn?t give up? as there were many times when client felt overwhelmed, but she did not quit on herself. Client shared at the beginning of treatment she did not want to work on her trauma, but now she is in a better place and client feels ready to start working through her past. Client shared she has been doing yoga every morning and client takes more time for her self-care. Client recognizes that she can continue to work on maintenance and following through with her goals. Client reviewed coping skills that will promote gains and mood stability. Client's coping skills included; yoga, hot showers, reframing negative thoughts, opposite action, self-care, and looking at the big picture. Client has an appointment scheduled with Gena Gray on 10/22/19. Client also plans to follow up with the [facility] for medication management and she has an appointment on 10/14/19. Risks/Concerns:: Client denies any suicidal ideations, plan, intent as of 10/08/19. Progress Toward Goals/Plan:: Client to discharge from [facility] today as she has met her treatment goals. Client reports ongoing sobriety from marijuana, minimal depressive symptoms, and improved overall mood. Client's DSM-5 symptoms have decreased since admission and she reports feeling more confident in managing her anxiety symptoms. Client continues to report use of healthy coping skills which has helped client better manage irritability and anxiety. Client?s symptoms have decreased in intensity and durations. Client recommended to follow up with Gena for outpatient counseling and [facility] for medication management. Time Stopped:: 12:00
--- NOTE | 2019-10-09 08:10 | BH.AFTERPLAN ---
Aftercare Plan - Demographics Treatment End Date:: 10/09/19 Psychiatrist:: Shannon López Psychiatrist Office #:: [id number] [facility]/IOP Therapist:: Grace Chavez Therapist Phone #:: [phone] - Medications Home Medications: Home Medications Venlafaxine XR [Effexor Xr] 150 mg PO DAILY #30 cap.er.24h 09/24/19 Gabapentin [Neurontin] 200 mg PO TIDCM 30 Days #180 cap 10/08/19 l-Norgest/E.estradiol-E.estrad [Ashlyna 0.15-0.03-0.01 mg Tab] 1 ea PO DAILY 10/08/19 - Plan Details Progress/Aftercare Plan Details:: Leilani has made significant strides since starting IOP as shown by her improved mood and increased ability to cope with her mental health symptoms. When Leilani started IOP she was experiencing anxiety, depression, severe panic attacks, and irritability. Now, Leilani is more confident, her depressive symptoms have significantly decreased, and she is managing her anxiety much better. Leilani has been able to reduce her irritability and regulate her emotions when faced with triggering situations. Leilani has worked to recognize her warning signs, use calming coping skills, and apply healthy coping skills daily. Leilani has been able to see all this progress without using marijuana to help her cope with anxiety, which is a significant improvement. Leilani has worked on challenging negative thoughts, self-compassion, and self-care. Leilani reports an improved mood, more motivation, and a more positive outlook on life. Leilani has been able to face things she used to avoid due to anxiety and has plans to go back to school with the help of the [employer] program. Leilani reports now that she is in a better place, she is finally ready to work on her trauma history. Leilani plans to continue outpatient counseling and psychiatric services. Leilani will go to [facility] for medication management. Leilani also plans to follow up with Gena phelps [facility] for individual counseling. Lastly, Leilani will continue working on her probation requirements and she plans to start the [facility] to go back to school. Strategies for Success:: 1. Continue with doing yoga every morning because it helps your day go better. 2. While having a panic attack, take a shower and let the water calm you down. 3. Opposite action! Do what you don't want to do. Challenge your thinking and your actions. 4. Reframe and challenging negative, anxious thoughts. Remember they are trying to convince you that you can't do something or that something terrible will happen. Anxiety lies. 5. Continue using positive self-talk and focus on the good that is happening. 6. Maintenance! continue with counseling, medication, and focusing on your well being. 7. Self-care! Take time for you. Even if it's only a few minutes or a few times a month. 8. Continue looking at the big picture and challenge your perspective. Remember how resilient you are! 9. Continue practicing self-reflection. This will help you recognize what your stress levels are at and allow you to apply the appropriate coping skills. 10. Give yourself credit!! You have come so far and have made SO much progress!! - Appointments Appointments/Referrals to Other Services:: 1. Follow up with outpatient psychiatry at [facility]. Appointment is 10/14/19 at 10:15am. 2. Follow up with outpatient counseling at [facility] with Gena. Appointment is 10/22/19 at 10:00am. 3. Follow up with me on 10/23/19 at 1:00pm. 4. Follow up with [facility]. Appointment is Sunday10/13/19 with Charla Lott.
--- NOTE | 2019-10-09 09:00 | BH.SGPN.GN ---
Behaviors/Verbalizations/Mental Status: []Client alert and oriented, neatly dressed and groomed. Eye contact good. Motor activity appropriate. Speech within normal limits. Affect full, mood euthymic. Thoughts linear, logical, no signs of hallucinations or delusions. Reviewed client?s symptom tracker, no risk for suicidal ideation, plan, or intent as of 10/09/19. Client Response/Progress/Benefit: []Client responded well to session, providing statements of hope and encouragement to peers. Client reports feeling ?anxious, hopeful, and excited? today as it is client?s last day in [facility]. Client reflected on her progress since starting IOP and reported ?I?ve done a 180, for real.? Client reported on her first day she came to [facility] ?in the middle of a mental breakdown? which client projected as anger towards [facility] staff. Client shared now she has very minimal depression and anger. Client stated she can also cope with her anxiety much better and she has been ?actually doing things? to improve her life. Client reported she used to think counseling was ?bullshit? but by keeping an open mind and actively applying the coping skills, client realized that she can rewire her brain and make changes. Client stated she does not have a stressor today, besides the mice in her house. Appeared to benefit from reflecting on her growth and accomplishments. Will discharge from [facility] today as client has made significant strides to reduce her mental healthy symptoms and improve functioning. Narrative Note: []
--- NOTE | 2019-10-09 10:20 | BH.SGPN.GN ---
Behaviors/Verbalizations/Mental Status: []Client alert and oriented, casually dressed and groomed. Eye contact good. Motor activity appropriate. Speech within normal limits. Affect congruent to topic being discussed, mood euthymic. Thoughts linear, logical, no signs of hallucinations or delusions. Client Response/Progress/Benefit: []Pt active participant AEB pt providing input throughout session and attentively listened to others comments. Pt identified three small personal changes to improve mental health as: iincreasing self-motivation, acknowledging her past traumas and growing from them, and learning something new and meeting someone new everyday. Identified current barriers keeping pt from making those changes to be: procrastination, anxiety and fear, distorted thoughts, and fear of remembering her past trauma. Pt appeared to benefit from gaining awareness of personal changes that would improve mental health and the barriers keeping client stuck. Progress noted in client level of insight regarding how her past unhealthy coping skills kept her from moving forward in life. Pt has made significant treatment progress since starting IOP and will discharge from IOP today. Narrative Note: []
--- NOTE | 2019-10-09 10:52 | BH.DS ---
Discharge Summary - Demographics Date of Admission:: 08/12/19 Discharge Date: 10/09/19 Presenting Problems at Admission:: Client is a 24-year-old woman with a history of MDD, MILLI, and PTSD. Client was referred to [facility] by [facility] ER social media marketing analyst. Client presented to the ER on 08/07/19 with worsening anxiety and daily panic attacks. At admission, client reported her symptoms had been worsening over the past several months due to numerous stressors. Client stated feeling overwhelmed and constantly worried that something bad would happen. Client was having panic attacks four times a day and she also reported severe irritability. Client endorsed depressive symptoms daily including; lack of appetite, decreased energy, hopelessness, poor concentration, anhedonia, isolation, frequent panic attacks, and worthlessness. Prior to admission, client had been smoking marijuana to cope with her symptoms and acknowledged she was dependent. Client?s symptoms were interfering with ability to function socially, occupationally, and educationally. Discharge Diagnoses:: Major depressive disorder recurrent severe without psychosis F33.2, generalized anxiety disorder, PTSD, Cluster B traits. Reason for Discharge:: Client has demonstrated significant progress towards her treatment goals as shown by her reduced depression, better management of anxiety, ongoing sobriety, and improved mood stability. Client no longer meets criteria for [facility] level of care. - Treatment Progress During Treatment & Response: Client responded well to treatment as shown by her active participation, report of improved mood, and reduction of DSM-5 symptoms. Client?s attendance was mostly consistent, but she did struggle at times with tardiness due to transportation issues and managing her children?s schedules. However, despite some tardiness, client was a positive contributor to group. Client was an active group member who often contributed to discussions and provided encouragement to peers. Client reported that being in group helped client gain different perspectives and it allowed client to practice coping skills in the moment. In individual sessions, client was receptive to learning new coping skills, challenging anxious thoughts, and setting small goals to promote opposite action. Client has been able to maintain sobriety from marijuana throughout her entirety of the program which is significant as client was a daily user for years. At discharge, client reported improved ability to cope with stress, minimal depressive symptoms, and more optimistic outlook. At discharge, client was able to report consistent application of healthy coping skills which included; deep breathing, yoga, opposite action, hot showers, positive self-talk, and thought challenging. At discharge, client?s DSM-5 symptom scores decreased by 56% going from a total of 57 at admission to 25 at discharge. Client?s DSM-5 scores for depression decreased, from 6/8 at admission to 2/8 at discharge. Additionally, client?s suicidal ideation decreased from admission to discharge going from 1/4 to 0/4. Client?s anxiety has decreased since admission as well going from 10/30 to 11 at discharge. Lastly, client?s anger decreased since admission going from 3/4 at admission to 1/4 at discharge. Issues Still to be Addressed:: Client has made significant strides while in [facility], but she can continue to benefit from ongoing counseling to promote maintenance of healthy coping skills. Client reports she is finally ready to start working on her trauma history and would like to start working through this in the outpatient setting. Client also would like to go back to school and work towards her goals for the future. Client plans to participate in the Community program at [facility] where she will be able to start working on these goals. Client can continue to benefit from maintaining sobriety from marijuana and to keep up with her upcoming appointments. Lastly, client can benefit from facing anxious situations to prevent avoidance and continue working on decreasing panic symptoms. Discharge Recommendations/Instructions:: Client is recommended to follow up with her outpatient providers for continuity of care. Client plans to go to [facility] in [place] for outpatient psychiatric care. Client?s first appointment is 10/14/19. Client is encouraged to continue outpatient counseling and she will see Gena phelps [facility] on 10/22/19. Lastly, client is recommended to follow up with the Community Program at [facility] to help client go back to school. Client has an appointment at [facility] on 10/13/19. Discharge Handout: Complete Discharge Handout with client on aftercare options and continuity of care.
--- NOTE | 2019-10-09 11:18 | BH.SGPN.GN ---
Behaviors/Verbalizations/Mental Status: [Eye contact is good. Motor activity is appropriate. Appearance is casual. Speech is Appropriate. Mood is euthymic, positive. Affect is congruent. Thoughts are linear and logical. No evidence of psychosis. ] Client Response/Progress/Benefit: [Pt was an active participant, did well to participate in group activity and provided insight and input to discussion. Pt worked with group members to identify connections between activity and strategies for overcoming barriers to making changes with regard to own personal mental health. She noted that past experiences can prevent willingness to make strides towards ?turning over a new leaf? in personal life. Pt did well to identify a specific change she would like to make for her mental health, barriers to making that change, and a SMART goal to reach that change. Shared she would like to work on learning something new or meeting someone new daily by beginning with getting out of her home at least once daily. Discussed that this change would help to increase a sense of hope and positive mindset. Benefited from working with group to identify strategies to overcome barriers to change and create a plan for implementing one small change promoting personal growth. Pt set to discharge from IOP program on this date and is recommended ongoing outpatient tx to maintain gains, continue to promote healthy change behaviors, and maintain stability.] Narrative Note: []
== END 2019-10-09 14:00 | disposition home or self-care (01) ==
LOC: BHIOP 09:00
PROVIDERS: Referring Provider Psychiatry & Neurology Psychiatry; Visit Provider Psychiatry & Neurology Psychiatry
DX: F33.2 Major depressive disorder, recurrent severe without psychotic features (principal); F41.1 Generalized anxiety disorder; F43.10 Post-traumatic stress disorder, unspecified
CPT/HCPCS: 99214; H0035; H2012; H2020; 90832; 90834

== ENCOUNTER 2020-09-03 15:37 | Emergency (ER) | payer MEDICAID, SELFPAY ==
[2020-09-03 15:37] VITALS: BP 140/82; PULSE 114; RESP 16; TEMP 36.2; O2SAT 100; BMI 30.5
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
[2020-09-03] MEDS: Morphine 4 MG/ML Syringe IV (18:09)
[2020-09-03] MEDS: Ondansetron 4 MG/2 ML Vial IV (18:09)
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
[2020-09-03 19:08] VITALS: BP 107/92; PULSE 70; RESP 16; O2SAT 100
[2020-09-03] MEDS: Diphth,Pertuss(Acell),Tet Vac 0.5 ML Vial IM (19:21)
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
== END 2020-09-03 19:36 | disposition home or self-care (01) ==
PROVIDERS: Emergency Provider Emergency Medicine
DX: S02.40CA Maxillary fracture, right side, initial encounter for closed fracture (principal); S02.5XXA Fracture of tooth (traumatic), initial encounter for closed fracture; S01.81XA Laceration without foreign body of other part of head, initial encounter; W22.8XXA Striking against or struck by other objects, initial encounter; Y93.9 Activity, unspecified; Y92.9 Unspecified place or not applicable; Y99.9 Unspecified external cause status; Z72.0 Tobacco use
CPT/HCPCS: 70450; 70486; 72125; 73562; 73610; 74177; 90715; 96374; 96375; 99281; 99284; Q9967; J2405

== ENCOUNTER → 2021-02-28 12:07 | Outpatient (CLI) | payer MEDICAID, SELFPAY ==
[2021-02-28 11:36] VITALS: BMI 31.1
[2021-02-28 13:29] LABS: Thyroid Stim Hormone (TSH) 2.01 uIU/mL (0.358-3.74)
[2021-03-02 03:07] LABS: Chlamydia By Nucleic Acid AMP Negative (Negative)
[2021-03-02 11:34] LABS: Gonococcus By Nucleic Acid AMP Negative (Negative)
[2021-03-04 20:36] LABS: HPV APTIMA, High Risk Positive (Negative); HPV Reflexed? YES, CHARGE PATIENT
== END ==
PROVIDERS: Referring Provider Nurse Practitioner Women's Health; Visit Provider Nurse Practitioner Women's Health
DX: Z12.4 Encounter for screening for malignant neoplasm of cervix (principal); Z11.3 Encounter for screening for infections with a predominantly sexual mode of transmission; N92.6 Irregular menstruation, unspecified; Z13.29 Encounter for screening for other suspected endocrine disorder
CPT/HCPCS: 36415; 84443; 87491; 87591; 87624; 88175; G0145

== ENCOUNTER → 2021-03-17 16:47 | Outpatient (CLI) | payer MEDICAID, SELFPAY ==
--- NOTE | 2021-03-17 | IMM_PTH ---
PATIENT: CHRIS SAWYER LOC: LAB U#:[id number] AGE/SX: 30/F ROOM: RE03/17/[address]: Dr. Inez Guerrero MD : 1995 BED: DIS: SPEC #: [id number] RECD: 03/21/21 11:53 STATUS: DEEDEE REQ #: [id number] ROXANNA: 03/17/21 00:[address]: Inez Guerrero DEPT: IMMUNOHISTOCHEMISTRY RECD BY: Gloria Resendiz ENTERED: 03/21/21 11:53 SP TYPE: IMMUNO OT DR: No Primary Care Phys Tissues: B - Uterine cervix, NOS Procedures: p16 (initial) KI-67 (add) PHYSICIAN & [place] [id number] SPECIMEN INFORMATION: Tissue Source: B ? Biopsy at 3 & 9 o?clock Clinical Info: ASCUS, HPV positive Specimen Number: [id number] CPT code: 35100, 69445 METHODOLOGY: Deparaffinized sections of prefer/formalin-fixed tissue or PAP/DQ stained slides are incubated with monoclonal/polyclonal antibodies/oligonucleotide probes. Localization is made via biotin free immunoperoxidase method. Appropriate controls are performed and reacted as expected. Results on target cell population are indicated in the following table: RESULTS: ANTIBODY / CLONE RESULT Block B P16 (E6H4) positive, focal, patchy Ki-67 (30-9) positive, low-moderate These tests were developed and their performance characteristics determined by [facility]. They may not have been cleared or approved by the U.S. Food and Drug Administration. The FDA has determined that such clearance or approval is not necessary. The above immunohistochemical/dualISH markers are ordered and reviewed by the Pathologist. INTERPRETATION: B. Cervix at 3 & 9 o?clock, biopsy: Consistent with mild to moderate squamous dysplasia, SAIGE I-II (HSIL). AM:levi 03/22/2021 Case has been reviewed in consultation with Dr. Rosa who concurs with the above diagnosis. IDC:CRISTINA
--- NOTE | 2021-03-17 | CER_PTH ---
PATIENT: CHRIS SAWYER LOC: [facility] U#:[id number] AGE/SX: 30/F ROOM: RE03/17/[address]: Dr. Inez Guerrero MD : 1995 BED: DIS: SPEC #: [id number] RECD: 03/17/21 16:40 STATUS: DEEDEE UMU #: [id number] ROXANNA: 03/17/21 00:[address]: Inez Guerrero DEPT: SURGICAL PATHOLOGY RECD BY: Angel Alas ENTERED: 03/18/21 09:44 SP TYPE: CERV OTHR DR: No Primary Care Phys Tissues: A - Uterine cervix, NOS B - Endocervical Procedures: Surgery Specimen Level IV HEADER OPERATION: Colposcopy PRE-OP DIAGNOSIS: ASCUS of cervix, HPV positive TISSUE SUBMITTED: A ? ECC, B ? Biopsy at 3 & 9 o?clock MICROSCOPIC DIAGNOSIS A. Endocervix, curettings: Strips of benign superficial endometrium with secretory change. Rare endocervical tissue with no pathologic change. No evidence of dysplasia. B. Cervix at 3 & 9 o?clock, biopsy: Mild and focal moderate dysplasia, SAIGE I-II (HSIL). Changes consistent with HPV cytopathic effect. Squamous inflammation. See comment. AM:levi 03/21/2021 COMMENT B. Results from immunohistochemistry ([id number]) for surrogate HPV marker (p16) will be reported separately. Case has been reviewed in consultation with Dr. Rosa who concurs with the above diagnosis. IDC:SJ MICROSCOPIC DESCRIPTION Slides are reviewed. GROSS DESCRIPTION A - Received in fixative is one container labeled with the patient's name and designated ECC. The specimen consists of multiple irregular fragments of day mucoid tissue that in aggregate measure 1 x 0.1 x 0.1 cm. The specimen is totally submitted in one cassette. B - Received in fixative is one container labeled with the patient's name and designated 3 and 9 o'clock. The specimen consists of multiple irregular fragments of day soft tissue that in aggregate measure 1 x 0.5 x 0.1 cm. The specimen is totally submitted in one cassette. / CRISTINA:levi 03/18/21 TC:0 CPT: 67684 x2
[2021-03-17 14:01] VITALS: BMI 31.6
== END ==
PROVIDERS: Referring Provider Obstetrics & Gynecology; Visit Provider Obstetrics & Gynecology
DX: R87.610 Atypical squamous cells of undetermined significance on cytologic smear of cervix (ASC-US) (principal)
CPT/HCPCS: 88305; 88341; 88342

== ENCOUNTER → 2022-05-04 | Outpatient (CLI) | payer MEDICAID, SELFPAY ==
--- NOTE | 2022-05-04 | IMM_PTH ---
PATIENT: CHRIS SAWYER LOC: LAB U#:[id number] AGE/SX: 26/F ROOM: RE05/04/[address]: Dr. Frida Howard DO : 1995 BED: DIS: 05/04/2022 SPEC #: [id number] RECD: 05/08/22 09:57 STATUS: DEEDEE REAnand #: [id number] ROXANNA: 05/04/22 00:[address]: Frida Howard DEPT: IMMUNOHISTOCHEMISTRY RECD BY: Gloria Resendiz ENTERED: 05/08/22 09:58 SP TYPE: IMMUNO OTHR DR: No Primary Care Phys Tissues: B - Uterine cervix, NOS C - Uterine cervix, NOS Procedures: p16 (initial) KI-67 (add) PHYSICIAN & INSTITUTION [place] [phone] SPECIMEN INFORMATION: Tissue Source: B ? Cervix at 6 o?clock, C - Cervix at 12 o?clock Clinical Info: ASCUS, HPV positive Specimen Number: [id number] B & C CPT code: 56455 x2, 00086 x2 METHODOLOGY: Deparaffinized sections of prefer/formalin-fixed tissue or PAP/DQ stained slides are incubated with monoclonal/polyclonal antibodies/oligonucleotide probes. Localization is made via biotin free immunoperoxidase method. Appropriate controls are performed and reacted as expected. Results on target cell population are indicated in the following table: RESULTS: ANTIBODY / CLONE RESULT Block B P16 (E6H4) positive, focal block staining Ki-67 (30-9) positive, moderate, focal Block C P16 (E6H4) negative Ki-67 (30-9) positive, low These tests were developed and their performance characteristics determined by [facility]. They may not have been cleared or approved by the U.S. Food and Drug Administration. The FDA has determined that such clearance or approval is not necessary. The above immunohistochemical/dualISH markers are ordered and reviewed by the Pathologist. INTERPRETATION: B. Cervix at 6 o?clock, biopsy: Focal moderate squamous dysplasia. C. Cervix at 12 o?clock, biopsy: Focal changes suspicious for HPV cytopathic effects. SJ:levi 05/09/2022
--- NOTE | 2022-05-04 14:30 | CER_PTH ---
PATIENT: CHRIS SAWYER LOC: [facility] U#:[id number] AGE/SX: 26/F ROOM: RE05/04/[address]: Dr. Frida Howard DO : 1995 BED: DIS: 05/04/2022 SPEC #: [id number] RECD: 05/04/22 15:46 STATUS: DEEDEE UMU #: [id number] ROXANNA: 05/04/22 14:[address]: Frida Howard DEPT: SURGICAL PATHOLOGY RECD BY: Marva Payne ENTERED: 05/05/22 08:18 SP TYPE: CERV OTHR DR: Jemima Primary Care Phys Tissues: A - Endocervical B - Uterine cervix, NOS C - Uterine cervix, NOS Procedures: Surgery Specimen Level IV HEADER OPERATION: Colposcopy PRE-OP DIAGNOSIS: ASCUS, HPV positive TISSUE SUBMITTED: A ? Endocervical curettings, B ? 6 o?clock, C ? 12 o?clock MICROSCOPIC DIAGNOSIS A. Endocervical curettings: Fragments of benign endocervical epithelium and mucosa. A few minute fragments of benign endometrial tissue. Negative for dysplasia. B. Cervix, 6 o?clock, biopsy: Focal mild and moderate squamous dysplasia (HGSIL and SAIGE I-II). Focal mild chronic inflammation and squamous metaplasia. See comment. C. Cervix, 12 o?clock, biopsy: Focal changes suspicious for HPV cytopathic effects. Focal mild chronic inflammation. See comment. SJ:levi 05/08/2022 COMMENT B & C. Immunohistochemistry ([id number]) for surrogate HPV marker (p16) supports the above diagnosis. MICROSCOPIC DESCRIPTION Slides are reviewed. GROSS DESCRIPTION A - Received in fixative is one container labeled with the patient's name and designated endocervical curettings. The specimen consists of scant fragments of day soft tissue measuring in aggregate 1 x 0.1 x <0.1 cm. B - Received in fixative is one container labeled with the patient's name and designated 6 o'clock. The specimen consists of one irregular fragment of light day soft tissue that measures 0.4 x 0.4 x 0.1 cm. The specimen is totally submitted in one cassette. C - Received in fixative is one container labeled with the patient's name and designated 12 o'clock. The specimen consists of one irregular fragment of light day soft tissue that measures 0.4 x 0.3 x 0.1 cm. The specimen is totally submitted in one cassette. / SJ:rg 05/05/2022 TC:5 CPT: 39493 x3
[2022-05-04 15:46] LABS: HIV - WCH Non-Reactive (Nonreactive); Hepatitis B Surface Antigen Non-Reactive (Nonreactive); Hepatitis C Antibody Non-Reactive (Nonreactive); Syphilis Antibodies Non-reactive
[2022-05-08 22:08] LABS: Chlamydia By Nucleic Acid AMP Negative (Negative)
[2022-05-09 07:43] LABS: Gonococcus By Nucleic Acid AMP Negative (Negative)
[2022-05-11 14:52] LABS: HPV Reflexed? NOT INDICATED
== END | disposition home or self-care (01) ==
LOC: PAVLAB 14:22 → LAB 16:12
PROVIDERS: Referring Provider Obstetrics & Gynecology; Visit Provider Obstetrics & Gynecology
DX: Z12.4 Encounter for screening for malignant neoplasm of cervix (principal); Z11.3 Encounter for screening for infections with a predominantly sexual mode of transmission; R87.610 Atypical squamous cells of undetermined significance on cytologic smear of cervix (ASC-US)
CPT/HCPCS: 36415; 86703; 86780; 86803; 87340; 87491; 87591; 88175; 88305; 88341; 88342; G0145

== ENCOUNTER 2022-06-16 08:49 | Day surgery (SDC) | payer MEDICAID, SELFPAY ==
[2022-06-16] VITALS (7 sets, daily range): BP systolic 125–130; BP diastolic 67–89; PULSE 70–85; RESP 14–16; TEMP 36.3–36.8; O2SAT 95–100; BMI 29.9
--- NOTE | 2022-06-16 | IMM_PTH ---
PATIENT: CHRIS SAWYER LOC: [facility] [place] U#:[id number] AGE/SX: 26/F ROOM: RE06/16/[address]: Dr. Frida Howard DO : 1995 BED: DIS: 06/16/2022 SPEC #: [id number] RECD: 06/20/22 11:45 STATUS: DEEDEE UMU #: [id number] ROXANNA: 06/16/22 00:[address]: Frida Howard DEPT: IMMUNOHISTOCHEMISTRY RECD BY: Gloria Resendiz ENTERED: 06/20/22 11:46 SP TYPE: IMMUNO OTHR DR: No Primary Care Phys Tissues: Uterine cervix, NOS Procedures: p16 (initial) KI-67 (add) PHYSICIAN & INSTITUTION [place] [phone] SPECIMEN INFORMATION: Tissue Source: Cervical cone Clinical Info: Precancerous cells Specimen Number: [id number] #1 CPT code: 45005, 30208 METHODOLOGY: Deparaffinized sections of prefer/formalin-fixed tissue or PAP/DQ stained slides are incubated with monoclonal/polyclonal antibodies/oligonucleotide probes. Localization is made via biotin free immunoperoxidase method. Appropriate controls are performed and reacted as expected. Results on target cell population are indicated in the following table: RESULTS: ANTIBODY / CLONE RESULT Block 1 P16 (E6H4) positive, block-like Ki-67 (30-9) positive, moderate These tests were developed and their performance characteristics determined by [facility]. They may not have been cleared or approved by the U.S. Food and Drug Administration. The FDA has determined that such clearance or approval is not necessary. The above immunohistochemical/dualISH markers are ordered and reviewed by the Pathologist. INTERPRETATION: Cervix, conization: Focal moderate to severe squamous dysplasia, SAIGE II-III (HSIL). AM:levi 06/21/2022
--- NOTE | 2022-06-16 08:45 | HP.PCM_ITS ---
History and Physical Date of Admission: 06/16/22 MR#: [id number] Acct: [id number] Name:CHRIS ROMAN : 1995 Provider: Dr. Frida Howard DO Age/Sex:? 26/F Intake Vital Signs ? 03/27/2213:15 05/04/2213:50 05/04/2213:51 Height 5 ft 9 in 5 ft 9 in 5 ft 9 in Weight: ? 204 lb 8 oz ? BMI ? 30.2 ? BP ? 130/82 H ? 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 Frida Howard, DO) MILLI (generalized anxiety disorder) Major depressive disorder, recurrent severe without psychotic features PTSD (post-traumatic stress disorder) Surgical History? History of tonsillectomy and adenoidectomy Family History? Grandmother Diabetes Social History? household members:? children number of children:? 3 current occupation:? [employer] history of recent travel:? No sexually active:? Yes Smoking Status:? Current every day smoker alcohol intake:? current alcohol intake frequency: a few times a month substance use type:? marijuana what type of physical activity do you participate in:? yoga frequency:? 3-4 times per week seatbelt use:? always do you feel safe at home:? Yes additional social history:? single Pregancy History ? ? ? 3 ? Elective abortions ? Hx Para ? ? ? 3 ? Spontaneous abortions ? Hx # Term Pregnancies ? Ectopic pregnancies ? Hx # Pregnancies ? Multiple births ? # of living children ? ? ? 3 Past Pregnancies Del. Date Name GA/Weeks Outcome Route Bth Weight Infant Gen Labor Lgth Anesthesia Del Locatn Provider FOB Unknown Labella? 2011 ? Unknown Parul? 2014 ? Unknown Franklyn? 2016 ? HPI Colposcopy, missed appt in January Details: CHRIS SAWYER is a 26 year old who presents for colposcopy with pap. She saw Dr. Guerrero last year and was diagnosed with SAIGE 2 in March 2021. She was given options for leep vs close q 6 month follow up. pt did neither of these and is worried today that she has advanced disease. She is also requesting STD testing.? ROS Const ROS Unobtainable: All systems reviewed & are unremarkable except as noted in H Resp Resp: Reports system reviewed and no additional complaints, except as documented; Denies cough GI GI: Reports as per HPI Psych Psych: Reports system reviewed and no additional complaints, except as documented Exam Const General: cooperative, healthy appearing, comfortable and no acute distress Resp Effort & Inspection: normal respiratory effort General: bimanual renal exam normal bilaterally External Female Exam: normal appearance of the urethra Urethra: normal appearance of the urethra Speculum Exam - Vagina: normal appearance of the vagina Speculum Exam - Cervix: normal appearance of the cervix Bimanual Exam- Adnexa, other: normal adnexae and normal Pelvic Support: normal Skin General: no rashes or lesions noted Psych Appearance: grossly normal Speech and Movement: speech and movement normal Office Procedures Colposcopy Colposcopy Reason for colposcopy: ASCUS and other Pap/SAIGE history: SAIGE 2 biopsy Consent Signed: Yes Time out performed: Yes Acetowhite epithelium (cervix): 6 o'clock and 12 o'clock Punctation (cervix): none and 6 o'clock Mosaicism (cervix): none Abnormal vessels (cervix): 6 o'clock and 12 o'clock Biopsies (cervix): 6 o'clock and 12 o'clock Results POC Urine Office , Urine Negative ? ? Last Edit by Yulia Blevins on 05/04/22 14:03 Coding Level of Care Code Attention Alex Diagnoses SAIGE II (cervical intraepithelial neoplasia II)? N87.1 Atypical squamous cells of undetermined significance (ASCUS) on Papanicolaou smear of cervix? R87.610 Assessment and Plan Assessment and Plan (1) SAIGE II (cervical intraepithelial neoplasia II): ?Status:?Acute (2) Atypical squamous cells of undetermined significance (ASCUS) on Papanicolaou smear of cervix: ?Status:?Acute ?Plan: rpt colposcopy performed. recommend LEEP if CIN2 or worse. pt also requested STD testing. gc/ct, and serum std panel ordered. UPDATE- I have seen the patient and performed any clinically relevant updates to the history and physical exam. The return biopsy showed HGSIL, plan to proceed with LEEP. Frida Howard, DO
[2022-06-16] MEDS: Lactated Ringers 1,000 ML 125 ML IV (09:22)
[2022-06-16 09:27] LABS: Hematocrit 41.5 % (37-47); Hemoglobin 13.6 g/dL (12.0-15.0); Internal QC Validated? YES +Cl - CLEAR BKGD; Mean Corp Hgb Conc 32.8 g/dL (32-36); Mean Corpuscular Hgb 29.8 pg (27.0-32.0); Mean Platelet Vol. 10.8 fl (6.2-12.0); Platelet Count 242 K/mm3 (150-450); Pregnancy, Urine Negative Negative; RBC Distribution Width CV 12.2 % (11.6-14.6); RBC Distribution Width SD 40.6 fl (35.1-43.9); Red Blood Count 4.56 M/mm3 (4.2-5.4); White Blood Count 7.1 K/mm3 (4.4-11.0)
--- NOTE | 2022-06-16 10:25 | CONE_PTH ---
PATIENT: CHRIS SAWYER LOC: [facility] [place] U#:[id number] AGE/SX: 26/F ROOM: RE06/16/[address]: Dr. Frida Howard DO : 1995 BED: DIS: 06/16/2022 SPEC #: [id number] RECD: 06/17/22 15:31 STATUS: DEEDEE KELLYAnand #: [id number] ROXANNA: 06/16/22 10:[address]: Frida Howard DEPT: SURGICAL PATHOLOGY RECD BY: Marva Payne ENTERED: 06/19/22 08:16 SP TYPE: Leep Cone JESSICA DR: No Primary Care Phys Tissues: UTERINE CERVIX LEEP Procedures: Surgery Specimen Level V HEADER OPERATION: LEEP cone PRE-OP DIAGNOSIS: Precancerous cells TISSUE SUBMITTED: Cervical cone MICROSCOPIC DIAGNOSIS Cervix, conization: Moderate to severe squamous dysplasia, SAIGE II-III (HSIL). See comment. AM:levi 06/20/2022 COMMENT Severe squamous dysplasia is present at the presumed endocervical cauterized margin. Clinical correlation is suggested. Results from immunohistochemistry ([id number]) for surrogate HPV marker (p16) will be reported separately. Reference is made to the patient's previous cervix biopsy from 05/08/22 ([id number]) in which mild and moderate squamous dysplasia was identified. Case has been reviewed in consultation with Dr. Rosa who concurs with the above diagnosis. IDC:CRISTINA MICROSCOPIC DESCRIPTION Slides are reviewed. GROSS DESCRIPTION Received in fixative is one container labeled with the patient's name and designated cervical biopsy. The specimen consists of two day, indurated pieces of tissue measuring 1.7 x 1 x 0.3 cm and 1.5 x 1 x 0.2 cm. No mucosal lesion is identified. Nonmucosal surface is inked black. Both pieces are serially sectioned. The entire specimen is submitted in two cassettes with each cassette containing one piece. / CRISTINA:levi 06/19/2022 TC:0 CPT: 67755
--- NOTE | 2022-06-16 10:51 | DCINST_ITS ---
Discharge Instructions Diet Discharge Diet: No restrictions Activity Discharge Activity: Return to Normal Activity and [place] Drive (while taking narcotic pain mediations.) May resume sexual activity in: 4 weeks (Nothing in the vagina for 4 weeks.) Dressing / Incision Call your doctor if you observe: Fever of 101 or Higher and Using more than 1 pad per hour Follow Up Care Please Follow Up With: Frida Howard DO When: Call [phone] for follow-up appointment. Test Results: Test results from this visit will be discussed in further detail at your follow- up appointment, if applicable. Discharge Plan Admission Primary Reason for Your Visit: LEEP procedure Attending Provider: Frida Howard Primary Care Provider: Care Physician,No Primary Discharge Orders/Prescriptions Prescriptions: New ibuprofen 800 mg tablet 800 mg PO Q8H PRN (Reason: pain) 5 Days Qty: 20 0RF Continued multivitamin Tablet 1 tablet PO DAILY Referrals / Follow Up: Care Physician,No Primary [Primary Care Provider] - Disposition Disposition (needs filled in before D/C Order can be placed): Home, Self Care
--- NOTE | 2022-06-16 10:58 | PCM.OP.BLANK ---
Operative Report Date of Procedure: 06/16/22 Preoperative diagnosis: Moderate cervical dysplasia Postoperative diagnosis: Moderate cervical dysplasia Procedure: LEEP (loop electrocautery excisional procedure) Surgeon: Dr. Frida Howard DO Estimated blood loss: Minimal Urine output: 200 cc Anesthesia: MAC and local using 1% lidocaine Details of the procedure: Patient was brought to the operating room where MAC anesthesia was found to be adequate. She was prepped and draped in the usual sterile fashion her legs were placed in stirrups. A thermal protected speculum was placed in the vagina. Lugol's solution was applied to the cervix. At the 2 and 10 o'clock position on the cervix 1% lidocaine plain was injected approximately 10 cc amount. Lugal's solution was applied to the cervix first and noted to have changes at one small area at the 6:00 position on the cervix. The LEEP procedure was performed using a 2cm x 1 cm cautery loop. The specimen was then passed off for pathology analysis. There was minimal bleeding on the cervical edge the ball cautery device was used to cauterize the cut edges of the LEEP site. Followed by application of Monsel solution. The patient tolerated the procedure well sponge lap and needle counts were correct x2 and all instruments removed from the vagina and she is now being brought to the recovery room in stable condition. Multi Select Codes Urinary/Genital Urinary/Genital CPT Codes: 43911 LEEP
[2022-06-16] MEDS: Iodine/Potassium Iodide 14ML Bottle 1 DRP TOPICAL (11:03)
[2022-06-16] MEDS: FERRIC SUBSULFATE 8 GM SOLN (11:15)
[2022-06-16] MEDS: Lidocaine 1% /Epi 1:100 (20ml) 20 ML Vial (11:20)
== END 2022-06-16 12:53 | disposition home or self-care (01) ==
LOC: SDC 08:49 → AC 08:51
PROVIDERS: Referring Provider Obstetrics & Gynecology; Visit Provider Obstetrics & Gynecology
PROC: 0UBC7ZZ Excision of Cervix, Via Natural or Artificial Opening (ICD-10-PCS; CPT 57522; principal; 2022-06-16 10:10)
DX: N87.1 Moderate cervical dysplasia (principal); F17.200 Nicotine dependence, unspecified, uncomplicated
CPT/HCPCS: 57522; 81025; 85027; 88307; 88341; 88342; J7120; J2405

== ENCOUNTER 2023-02-26 08:00 | Outpatient (RCR) | payer MEDICAID, SELFPAY ==
--- NOTE | 2023-02-26 10:10 | BH.SGPN.GN ---
Behaviors/Verbalizations/Mental Status: [] Eye contact is good. Motor activity is appropriate. Appearance is casual. Speech is Appropriate. Mood is anxious. Affect is congruent. Thoughts are linear and logical. No evidence of psychosis. Client Response/Progress/Benefit: [] Pt participated at times during group discussion. Attentive during psychoeducation on fixed mindset. Participated at times during interactive discussions in which group worked together to define 'fixed mindset'. Descriptors identified included; only one way of seeing things, absolute thinking, not compromising, and believing that nothing could change. Participated in further discussion on the negatives that result from a 'fixed' mindset which are; emotional dysregulation, decreased confidence in oneself, feeling 'stuck', feelings of worthlessness, hopelessness, and 'giving up'. Benefited from increased understanding of 'fixed' mindset and its impact on mental health. Will continue in IOP to prevent decompensation, stablize mood, and increase healthy coping skills to improve functioning.
--- NOTE | 2023-02-26 11:10 | BH.SGPN.GN ---
Behaviors/Verbalizations/Mental Status: []Pt alert and oriented, neatly dressed and groomed. Eye contact good. Motor activity appropriate. Speech within normal limits. Affect congruent, mood euthymic. Thoughts linear, logical, no signs of hallucinations or delusions. Client Response/Progress/Benefit: []Pt engaged during activity and discussion AEB providing some input, connecting with peers, as well as taking notes throughout. Pt did well to engage as group worked on identifying characteristics and benefits of adopting a growth mindset. Worked with fellow participants in reframing the example fixed thoughts into growth mindset thoughts. Reframed personal fixed thought of ?I always mess up and I?ll never be successful? with growth mindset thought of ?I have done a lot of good things.? Benefitted from discussing benefits of growth mindset and brainstorming strategies for prompting growth-mindset. Pt did well in small group to challenge own thoughts and help peers. Pt?s first day of IOP tx. Pt will continue IOP tx to prevent decompensation, improve emotional regulation skills, and improve daily functioning. ?? Narrative Note: []
--- NOTE | 2023-02-28 09:01 | BH.SGPN.GN ---
Behaviors/Verbalizations/Mental Status: [] Eye contact good. Motor activity appropriate. Speech within normal limits. Affect congruent, mood depressed. Thoughts linear, logical, no signs of hallucinations or delusions. Reviewed client?s symptom tracker, no risk for suicidal ideation, plan, or intent. Client Response/Progress/Benefit: [] Client responded well to session, attentive and willing to process with group. Client shared mental health positive today is being alive. Shared additional mental health positive as showing up to IOP today. Client shared she has been in this program previously and had significant benefit in decreasing her panic attacks but is back to help with the different areas of her life. Client noted current stressor is feeling a lot of grief for the loss of her mom and brother. Client stated feeling depressed today. Client appeared to benefit from group support and encouragement. Recommended continued IOP tx to improve daily functioning, increase healthy coping, and prevent decompensation.
--- NOTE | 2023-02-28 10:10 | BH.SGPN.GN ---
Behaviors/Verbalizations/Mental Status: []Pt alert and oriented, neatly dressed and groomed. Eye contact good. Motor activity appropriate. Speech within normal limits. Affect congruent, mood depressed. Thoughts linear, logical, no signs of hallucinations or delusions. Client Response/Progress/Benefit: []Pt was an active participant in group discussion and activity. Attentive during psychoeducation. Along with peers was able to identify barriers to taking action. Identified several symptoms and stressors that she feels are holding her back from progress such feeling selfish, guilt, and lack of motivation. Stated these things have kept pt from accepting help and reinforces negative core beliefs. Benefited from increased self-awareness of obstacles. Will continue IOP tx to prevent decompensation, improve emotional regulation skills, and reduce negative thinking patterns. Narrative Note: []
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
[2023-02-28 12:02] VITALS: BP 137/89; PULSE 59
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
--- NOTE | 2023-02-28 12:59 | BH.DR.ITP ---
Initial Treatment Plan Patient Information Visit Information: ADMISSION DATE: EXPECTED LOS: 4-6 weeks Problems/Symptoms Problem #1:: Mood instability Symptom:: Depression, sadness, isolation, lack of motivation, irritability, anhedonia, worthlessness, hopelessness, guilt. Low energy. Problem #2:: Anxiety Symptom:: Worry, avoidance, rumination
--- NOTE | 2023-02-28 15:13 | BH.MDN ---
Multi-Disciplinary Note - Note 45-min Individual Time Started:: 11:10 Date: 02/28/23 Purpose of session/treatment goals addressed:: To gather information on pt's current stressors, symptoms, triggers, and tx goals. Another goal was to build rapport and provide emotional support. Eye Contact:: Good Motor Activity:: Appropriate Appearance:: Neat Speech:: Appropriate Mood:: Depressed Affect:: Congruent Thoughts:: Linear, Logical, No evidence of hallucinations/delusions noted Staff Interventions:: thought challenging, CBT techniques, rapport building, strengths perspective, treatment planning, goal setting Client Response:: Pt responded well to session, open to meeting with therapist. Pt reports she has been experiencing worsening depressive symptoms over the past year. Pt shared she often feels guilt because she has nothing to be depressed about. 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 Pt identified her biggest goals for IOP as being happy and at peace which to pt means being productive, active, and enjoying her life. Pt found meditation, yoga, and hiking beneficial in the past, but pt admits she has not been using those skills. Pt also shared she did not follow through with aftercare the last time she was in IOP which pt feels could have contributed to her decompensation. Pt and therapist explored additional triggers to her worsening depression including several trauma triggers that have occurred over the past months/year. Pt shared she has never had trauma counseling and pt would like benefit from this in the future. Pt receptive to creating three goals for a daily habit tracker. Pt identified the following goals: meditate once a day, get out of the house once, and take medications. Risks/Concerns:: Pt admits to thoughts of , but denies any suicidal ideations, plan, or intent. Pt's three kids are her biggest protective factors. Progress Toward Goals/Plan:: Pt started IOP tx this week, so no progress to document yet. Pt previously completed IOP tx and reported it was helpful. Pt stated this time in the program her depression is the biggest issue. Pt reports anhedonia, lack of motivation, lack of energy, negative thinking, thoughts of , difficulty concentrating, and lack of self-care. Pt stated right now she is doing the bare minimum which triggers excessive guilt. Pt is not connected with any outpatient services and will need this set up prior to discharge. Pt will continue IOP tx to prevent decompensation, increase use of healthy coping skills, and improve overall functioning. Time Stopped:: 11:55
--- NOTE | 2023-02-28 15:14 | BH.MTP ---
[facility] Treatment Plan - Patient Information Program Physician:: Dr. Shannon López Primary Therapist:: Grace QUINTANA - Psychiatric Diagnoses Psychiatric Diagnoses:: Bipolar 2 disorder, most recent episode depressed, without psychosis F31.81; Generalized anxiety disorder; Complex PTSD; Marijuana use disorder Diagnosis Code(s):: F 31.81 - Estimated LOS Estimated LOS (in weeks):: 6 Problem/Goal #1 - Problem/Goal #1 Stated Goal:: Pt will reduce depressive symptoms, negative self-talk, thoughts of , hopelessness, and isolation. Description of Barriers: Pt is currently smoking weed 3x a day and reports insight that this is not helpful. Significant trauma history and recent trauma triggers that have been exacerbating depressive symptoms. 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 Functional Impact: Pt is a 27-year-old female with a history of depression, anxiety, and PTSD. Pt previously completed IOP in 2019 and referred herself back to IOP. Pt reports worsening symptoms of depression for the past several months. 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 Pt endorses lack of motivation, lack of energy, anhedonia, thoughts of , isolation, increased sleep, hopelessness, and excessive guilt. Pt also reports anxiety with ruminations, avoidance, constant worry, and racing thoughts. Pt is not currently connected with any outpatient counseling or psychiatry. Goal Relevant Strengths/Supports: Pt previously completed IOP and made progress. Pt has three kids that are pt's protective factors. Pt is very resilient. - Objectives Objective #1 Stated Objective: Pt will learn and utilize 2-3 healthy coping strategies to better manage depressive symptoms and reduce DSM-5 symptoms for depression and thoughts of . Interventions: Through group and individual sessions, therapist will help pt identify triggers and warning signs of depression and emotional dysregulation including emotional, physical, and behavioral changes. Therapist will teach pt various coping skills to manage her symptoms. Therapist will use cognitive restructuring techniques and help pt gain awareness of negative thoughts that reinforce depressive cycles. Therapist will help pt incorporate mindfulness and emotional regulation skills when dealing with difficult situations. Discharge Criteria: Pt will have met this goal when she can report learning and using at least 2 coping skills to manage depressive symptoms and her DSM-5 scores for depression, anger, and SI have decreased. Target Date: 04/09/23 Review Date: 03/19/23 Status: open Objective #2 Stated Objective: Pt will reduce anhedonia and improve mood through setting and accomplishing 2-3 behavioral activation goals a week. Interventions: Through group and individual sessions, pt will learn how to set small SMART goals to promote mood stability. Therapist will provide education on maintenance cycles for depression and help pt learn how to break unhealthy maintenance cycles Discharge Criteria: Pt will have accomplished this goal when can report accomplishing at least two behavioral activation goal a week. Target Date: 04/09/23 Review Date: 03/19/23 Status: open Problem/Goal #2 - Problem/Goal #2 Stated Goal:: Will reduce anxiety, panic, and PTSD symptoms through increasing emotional skills. Description of Barriers: Pt is currently smoking weed 3x a day and reports insight that this is not helpful. Significant trauma history and recent trauma triggers that have been exacerbating depressive symptoms. 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 Functional Impact: Pt is a 27-year-old female with a history of depression, anxiety, and PTSD. Pt previously completed IOP in 2019 and referred herself back to IOP. Pt reports worsening symptoms of depression for the past several months. 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 Pt endorses lack of motivation, lack of energy, anhedonia, thoughts of , isolation, increased sleep, hopelessness, and excessive guilt. Pt also reports anxiety with ruminations, avoidance, constant worry, and racing thoughts. Pt is not currently connected with any outpatient counseling or psychiatry. Goal Relevant Strengths/Supports: Pt previously completed IOP and made progress. Pt has three kids that are pt's protective factors. Pt is very resilient. - Objectives Objective #1 Stated Objective: Pt will identify 2-3 anxiety and PTSD triggers and 2 coping skills to use when feeling anxious or irritable to manage anxiety as shown by reducing DSM-5 scores for anxiety. Interventions: Therapist will provide education on anxiety, avoidance behaviors, and maintenance cycles. Therapist will help pt explore personal symptoms and warning signs of anxiety and PTSD. Therapist will teach pt coping skills to improve emotional regulation, mindfulness, and distress tolerance to help pt cope with anxiety in the moment. Discharge Criteria: Pt will have accomplished this goal when she can identify at least 2 triggers and report using 2 coping skills to manage anxiety and PTSD. Additionally, pt will have accomplished this goal AEB reduction of DSM-5 scores for anxiety. Target Date: 04/09/23 Review Date: 03/19/23 Status: open Objective #2 Stated Objective: pt will identify 2-3 cognitive distortions that lead to rumination and learn 2-3 ways to manage these thoughts to better manage anxiety. Interventions: Therapist will provide education on the most common cognitive distortions and teach pt the connection between thoughts, emotions, and feelings. Therapist will assist pt in identifying, challenging, and replacing dysfunctional thoughts with positive, more realistic thoughts. Therapist will use CBT and DBT techniques to help pt gain awareness of thinking errors and learn how to more effectively handle negative thoughts. Discharge Criteria: Pt will have accomplished this goal when can identify at least 2 cognitive distortions and at least 2 coping skills to manage negative thoughts. Target Date: 04/09/23 Review Date: 03/19/23 Status: open
--- NOTE | 2023-02-28 15:14 | BH.PSA ---
Development & Family of Origin - Family History Family History: Family History (Last Reviewed 05/04/22 @ 13:50 by Yulia Blevins) Grandmother Diabetes Suicide Assessment Treatment Plan Recommendations
--- NOTE | 2023-03-07 11:17 | BH.COMM ---
Communication Note - Communication with Client Communication Note: Pt cancelled IOP session on 03/06/23 due to illness. Pt no called no showed on 03/05/23 and no called no showed today 03/07/23. Therapist called and left pt a voicemail to check in and to remind pt of the IOP attendance policy. Therapist will follow up with pt later this week.
--- NOTE | 2023-03-09 10:36 | BH.COMM_ITS ---
Communication Note - Communication with Client Communication Note: Spoke with pt and pt shared she is feeling better, but she is on her way to [place] to attend a which was unexpected. Pt reports plan to attend [facility] tx on 03/12/23.
--- NOTE | 2023-03-09 10:36 | BH.COMM ---
Communication Note - Communication with Client Communication Note: Spoke with pt and pt shared she is feeling better, but she is on her way to [place] to attend a which was unexpected. Pt reports plan to attend [facility] tx on 03/12/23.
--- NOTE | 2023-03-14 10:10 | BH.SGPN.GN ---
Behaviors/Verbalizations/Mental Status: []Pt alert and oriented, neatly dressed and groomed. Eye contact good. Motor activity appropriate. Speech within normal limits. Affect congruent, mood depressed and irritable. Thoughts linear, logical, no signs of hallucinations or delusions. Client Response/Progress/Benefit: []Pt was an active participant in group discussions and activity. Attentive during psychoeducation. Interactive discussion on the definition of perspective, how perspective is formed, and why perspective is important in treatment.? Pt along with peers also identified that perspective can either motivate and encourage treatment or be a barrier to receiving help. Pt shared her perspective today is ?very negative? due to the numerous losses pt has been grieving and ongoing stressors. Pt reports she feels that even if she is positive, it will not matter, but pt is still open to challenging these thoughts which is a strength. Pt?s second week in IOP tx. Will continue in IOP tx to prevent decompensation, improve distress tolerance skills, and reduce isolative behaviors. Narrative Note: []
--- NOTE | 2023-03-14 11:15 | BH.SGPN.GN ---
Behaviors/Verbalizations/Mental Status: []Pt alert and oriented, casually dressed and groomed. Eye contact good. Motor activity appropriate. Speech within normal limits. Affect constricted, mood depressed. Thoughts linear, logical, no signs of hallucinations or delusions. Client Response/Progress/Benefit: []Pt was attentive and contributed to small group discussion. Pt completed strengths exploration worksheet. Pt able to acknowledge how these strengths are helping pt and can continue to help pt in mental health journey. Able to reflect on how pt?s kindness, empathy, and wisdom have helped pt in the past and continue to help pt with mental health. Pt worked with group to identify strategies that can help increase utilization of personal strengths and how to challenge one?s perspective in general. Benefited from identifying personal strengths and strategies for enhancing use of identified strengths. Pt to continue IOP tx to prevent decompensation, get support, promote mood stability, and continue to improve perspective challenging. ? Narrative Note: []
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
--- NOTE | 2023-03-15 10:00 | BH.SGPN.GN ---
Behaviors/Verbalizations/Mental Status: [] Eye contact is good. Motor activity is appropriate. Appearance is casual. Speech is Appropriate. Mood is depressed. Affect is congruent. Thoughts are linear and logical. No evidence of psychosis Client Response/Progress/Benefit: [] Pt participated at times during group discussions. Attentive during psychoeducation on Conflict Styles. Participated during interactive discussion amongst group members in which they discussed perspective on conflict which was reported to be overall negative (yelling, shutting down, being mean, war, arguments, etc). Therapist challenged pt on reasons we may benefit from conflict and pt along with peers identified several benefits which included; to obtain resolution to an issue, to set boundaries, for one's safety, to improve relationships, to address concerns, and for growth. Engaged with peers during small group assignment in which they identified positives and negatives to each conflict style. Benefited from increased understanding of conflict and ways individuals manage conflict. Will continue in IOP to prevent decompensation, decrease anxiety, and improve functioning. Narrative Note: []
--- NOTE | 2023-03-15 11:10 | BH.SGPN.GN ---
Behaviors/Verbalizations/Mental Status: []Pt alert and oriented, neatly dressed and groomed. Eye contact good. Motor activity appropriate. Speech within normal limits. Affect flat, mood irritable. Thoughts linear, logical, no signs of hallucinations or delusions. Client Response/Progress/Benefit: []Pt engaged in session AEB contributing to discussion and engaging in activity. Pt did well to review current conflict styles of avoiding and competing and their impact on pt?s mental health. Attentive and taking notes during discussion on strategies for more effectively managing conflict in personal life.? Pt participated in activity and did well to talk through choices with peers. Pt given handout on fair fighting rules and identified that they want to work on reducing stonewalling and avoiding issues. Pt is going to work on this by ?speaking up when I feel some type of way.? Appeared to benefit from gaining strategies to help pt better manage conflict. Will continue IOP tx to prevent decompensation, improve daily functioning, and increase emotional regulation skills. Narrative Note: []
== END 2023-03-18 23:59 ==
LOC: BHIOP 08:00
PROVIDERS: Referring Provider Psychiatry & Neurology Psychiatry; Visit Provider Psychiatry & Neurology Psychiatry
DX: F31.81 Bipolar II disorder (principal); F41.1 Generalized anxiety disorder; F43.10 Post-traumatic stress disorder, unspecified; F12.90 Cannabis use, unspecified, uncomplicated
CPT/HCPCS: 90792; H2012; H2020; S9480; T1002; 90834

== ENCOUNTER 2023-03-19 08:22 | Outpatient (RCR) | payer MEDICAID, SELFPAY ==
[2023-03-19 00:49] VITALS: BP 137/89; PULSE 59
--- NOTE | 2023-03-20 09:05 | BH.SGPN.GN ---
Behaviors/Verbalizations/Mental Status: v[]Pt alert and oriented, neatly dressed and groomed. Eye contact good. Motor activity appropriate. Speech within normal limits. Affect congruent, mood hopeful. Thoughts linear, logical, no signs of hallucinations or delusions. Reviewed pt?s symptom tracker, no risk for suicidal ideation, plan, or intent as of 03/20/23 Client Response/Progress/Benefit: []Pt responded well to session, attentive and engaged. Pt reports feeling hopeful this morning. Pt shared her life is falling apart lately and she feels stuck. However, pt is trying to remind herself that she can do something about it which makes pt feel hopeful. Pt shared getting to IOP today and continuing to be open-minded are her wins this morning. Pt appeared to benefit from reflecting on her resilience and getting encouragement from peers. Pt will continue IOP tx to prevent decompensation, improve use of healthy coping skills, and reduce negative thinking patterns. Narrative Note: []
--- NOTE | 2023-03-20 10:10 | BH.SGPN.GN ---
Behaviors/Verbalizations/Mental Status: []Pt alert and oriented, casually dressed and groomed. Eye contact fair. Motor activity appropriate. Speech within normal limits. Affect constricted, mood dysthymic. Thoughts linear, logical, no signs of hallucinations or delusions. Client Response/Progress/Benefit: []Pt receptive to session AEB contributing to discussion, as well listening attentively to others, and taking notes. Worked with group to brainstorm the positive and negative aspects of stress on physical and mental health. Group did well to identify the benefits of stress as well as the impact of distress on performance, relationships, and mental health. Pt identified their personal top stressors as: grief, wanting to be a good mom, and failures. Pt seemed to benefit from increased awareness of current stressors and impact stress has on mental health. Recommended to continue IOP tx to stabilize mood, challenge negative perspective, and prevent decompensation.
--- NOTE | 2023-03-20 11:10 | BH.SGPN.GN ---
Behaviors/Verbalizations/Mental Status: [] Eye contact is good. Motor activity is appropriate. Appearance is casual. Speech is Appropriate. Mood is anxious/irritable. Affect is congruent. Thoughts are linear and logical. No evidence of psychosis. Client Response/Progress/Benefit: [] Pt was an active participant in group discussions. Active and engaged during experiential activity. Attentive during psychoeducation on the 4 A's of stress management (Avoid, Alter, Adapt, Accept). Along with peers pt was able to connect the experiential activity to the group topic of stress. Identified times during the activity in which she utilized in the moment stress management skills which included; utilizing others for support/help, identifying struggles and adapting, making necessary changes when needed, the importance of patience, taking a step back, breathing, reframing thoughts, and not ruminating or letting setbacks lead to giving up. Benefited from increased education on stress management strategies and practicing in the moment stress management skills. Will continue in IOP to prevent decompensation, increase healthy coping, and to increase functioning. Narrative Note: []
--- NOTE | 2023-03-22 09:10 | BH.SGPN.GN ---
Behaviors/Verbalizations/Mental Status: [] Eye contact is good. Motor activity is appropriate. Appearance is casual. Speech is Appropriate. Mood is euthymic. Affect is full. Thoughts are linear and logical. No evidence of psychosis. Reviewed daily check in sheet and no reports of suicidal ideations or intent. Client Response/Progress/Benefit: [] Pt was an active participant in group discission. Attentive. Mental health win was she deep cleaned my house yesterday. States that this made her feel much better and elaborate on the positive impact of organizing and cleaning for her. States I have a lot of stressors but I don't want to discuss those today. She is making an effort to live in the moment today and not ruminate. Emotion for today is hopeful. Very brief check-in however engaged in group and provided appropriate feedback to peers. Benefited from group support, encouragement, and feedback. Will continue in IOP to maintain safety, prevent decompensation, stabilize mood, and increase functioning. Narrative Note: []
--- NOTE | 2023-03-22 10:15 | BH.SGPN.GN ---
Behaviors/Verbalizations/Mental Status: []Pt alert and oriented, neatly dressed and groomed. Eye contact good. Motor activity appropriate. Speech within normal limits. Affect congruent, mood euthymic. Thoughts linear, logical, no signs of hallucinations or delusions. Client Response/Progress/Benefit: []Pt responded well to session AEB contributing to discussion, taking notes, and listening attentively to others. Group discussed the benefits of managed anger and anger as a secondary emotion. Pt shared perspective on personal benefits of anger as motivation for change and advocacy. Pt completed worksheet on anger triggers and personal warning signs of anger. Pt identified their biggest triggers as injustices of the world, grief, disappointments, and not living up to own expectations. Appeared to benefit from increased knowledge of the anger cycle as well as personal triggers. Will continue IOP tx to prevent decompensation, reduce isolation, and improve daily functioning. Narrative Note: []
--- NOTE | 2023-03-22 11:10 | BH.SGPN.GN ---
Behaviors/Verbalizations/Mental Status: []Client alert and oriented, casually dressed and groomed. Eye contact good. Motor activity appropriate. Speech within normal limits. Affect congruent, mood euthymic. Thoughts linear, logical, no signs of hallucinations or delusions. Client Response/Progress/Benefit: []Pt was engaged throughout AEB contributing to group discussion and self-reflection. Group finished processing cues to anger worksheet. Pt contributed as group brainstormed healthy coping skills for better managing anger which included: music, walking/exercise, taking a break, grounding tools, reflection, and journaling. Pt reported she would like to work on skills of belly breathing and nature to help manage anger responses. Pt appeared to benefit from identifying different techniques to manage anger as well as gaining awareness of potential consequences of unmanaged anger. Will continue IOP tx to decrease depression, increase consistent use of healthy skills, and prevent decompensation.
--- NOTE | 2023-03-22 13:52 | BH.MDN ---
Multi-Disciplinary Note - Note 60-min Individual Time Started:: 12:10 Date: 03/22/23 Purpose of session/treatment goals addressed:: To work on goal #1 of pt's tx plan. Another goal was to practice self-compassion techniques. Eye Contact:: Good Motor Activity:: Appropriate Appearance:: Neat Speech:: Appropriate Mood:: Euthymic Affect:: Congruent Thoughts:: Linear, Logical, No evidence of hallucinations/delusions noted Staff Interventions:: thought challenging, psychoeducation on: - mistaken beliefs, CBT techniques, strengths perspective, goal setting, taught coping skills, other - gave pt homework to review the 5 questions to ask your mistaken beliefs. Client Response:: Pt responded well to session, open to meeting with therapist. Pt shared she is feeling more hopeful today than she has been recently. Pt spent the day yesterday deep cleaning her house which significantly improved pt's mood per her report. Pt continues to struggle with all the grief and hardship in her life, but pt stated she wants to be happy. Pt followed through with her goal this week of getting to IOP at least twice. Pt has not yet cut back on smoking marijuana, but she is working on reducing cigarette smoking. Pt stated she is frustrated with herself for constantly falling back into old patterns of behaviors and thinking. This was prompted because pt shared she is talking to her ex-boyfriend again and she continues to struggle with challenging her negative thought patterns. Receptive to learning about core beliefs and how these are different from automatic negative thoughts. Pt learned how core beliefs can impact relationships and make it hard to be kind to oneself. Pt completed the mistaken beliefs questionnaire and pt scored highly in the belief that she has to be perfect, she has no power, and that her worth is dependent on success. Pt able to recognize how these beliefs have reinforced depression and lack of self-compassion. Pt also sees how these beliefs keep pt in relationships that are unhealthy. Pt receptive to working on her behaviors to challenge these mistaken beliefs and pt will review the 5 questions to ask mistaken beliefs for homework. Risks/Concerns:: Pt denies any suicidal ideations, plan, or intent as of 03/22/23. Progress Toward Goals/Plan:: Pt's DSM-5 scores have not decreased since admission and pt's depression has increased. Pt has recently experienced numerous hardships, such as the of her father, which are exacerbating her symptoms. Pt has demonstrated progress with increasing her IOP attendance and her self-report of wanting to improve. Pt continues to endorse anhedonia, a depressed mood, crying spells, hopelessness, guilt, and ruminations. Pt will continue IOP tx to prevent further decompensation and improve distress tolerance skills. Time Stopped:: 13:05
--- NOTE | 2023-03-22 14:05 | BH.TPR ---
Treatment Plan Review Date of Admission:: 02/26/23 Date of Treatment Plan Review:: 03/22/23 Admitting Diagnoses:: Bipolar 2 disorder, most recent episode depressed, without psychosis F31.81; Generalized anxiety disorder; Complex PTSD; Marijuana use disorder Current Diagnoses:: Bipolar 2 disorder, most recent episode depressed, without psychosis F31.81; Generalized anxiety disorder; Complex PTSD; Marijuana use disorder Patient's Response to Treatment:: Pt has responded somewhat well to treatment. Pt is engaged when she attends, but pt has recently had issues with attendance due to depressive symptoms. Pt also missed several days of her medication when she went to [place] for her father's . Status of Current Problems and Symptoms: Symptoms remain unchanged since admission. Pt's father recently which triggered the loss of pt's mother and one of her brothers. Pt reports feeling angry, hopeless, and depressed. Pt also reports recently becoming aggressive and binge drinking which was triggered by the loss. Pt endorses lack of motivation, lack of energy, anhedonia, and isolation. Problem #1 Problem Name:: Depressive sx, negative self-talk, thoughts of , hopelessness. Status of Goals:: Objective 1-not complete. Pt?s symptoms for depression have increased since admission. This is likely due to pt?s father recently passing away and the anger/grief pt feels. Pt can identify healthy coping skills and admits that she has not been using healthy coping skills. Objective 2-in progress. Pt has been working on doing meditation every day, but pt is still struggling with completing her ADLs. Team Recommendations:: Treatment team recommends pt continue working on these goals as pt's scores for depression have not decreased since admission. Pt is also encouraged to reduce marijuana use and increase IOP attendance to reduce isolation. Problem #2 Problem Name:: Anxiety, panic, and PTSD Status of Goals:: Objective 1- not complete. Pt?s scores for anxiety remain the same since admission and her score for anger has increased. As mentioned above, this is likely due to the loss of her father which has triggered all the loss pt has experienced throughout her life. This also triggered increased PTSD symptoms and trauma responses such as becoming aggressive. Objective 2- not complete. Pt will continue to work on identifying and combating distortions that reinforce anxiety. Team Recommendations:: Treatment team recommends pt continue working on these goals as pt's scores for anxiety have not decreased since admission. Pt is also encouraged to reduce marijuana use and increase IOP attendance.
--- NOTE | 2023-03-23 11:38 | BH.COMM ---
Communication Note - Communication with Client Communication Note: did not show today
--- NOTE | 2023-03-26 09:05 | BH.SGPN.GN ---
Behaviors/Verbalizations/Mental Status: [] Eye contact is good. Motor activity is appropriate. Appearance is casual. Speech is Appropriate. Mood is depressed/anxious. Affect is flat. Thoughts are linear and logical. No evidence of psychosis Client Response/Progress/Benefit: [] Pt participated at times during the group discussion. Attentive. Mental health wins include increased confidence in her ability to manage her emotions and interactions with others. Shared skills that she has used recently to help with anxiety and negative thoughts. Benefited from group support, encouragement, and feedback. Will continue in IOP to prevent decompensation, improve functioning, and stabilize mood. Narrative Note: []
--- NOTE | 2023-03-26 10:15 | BH.SGPN.GN ---
Behaviors/Verbalizations/Mental Status: []Pt alert and oriented, neatly dressed and groomed. Eye contact good. Motor activity appropriate. Speech within normal limits. Affect congruent, mood euthymic. Thoughts linear, logical, no signs of hallucinations or delusions. Client Response/Progress/Benefit: []?Pt was an active participant in group discussions. Attentive during psychoeducation. Contributed during interactive discussions in which peers attempted to define crisis. Pt identified several examples of potential crisis. Group also worked together to identify unhealthy responses to crisis which included; isolation, self-harm, overuse of distraction, avoidance, and lashing out. Pt identified personal warning signs as loss of interest, racing thoughts, and feeling disconnected from her surroundings. Benefited from increased understanding of crisis and awareness of personal responses to crisis. Pt will continue IOP tx to increase mood stability, reduce negative thinking patterns, and improve daily functioning. ? Narrative Note: []
--- NOTE | 2023-03-26 11:15 | BH.SGPN.GN ---
Behaviors/Verbalizations/Mental Status: []Client alert and oriented, casually dressed and groomed. Eye contact fair. Motor activity appropriate. Speech within normal limits. Affect congruent. Mood euthymic. Thoughts linear, logical, no signs of hallucinations or delusions. Client Response/Progress/Benefit: []Client engaged throughout group session AEB providing contributions to discussion and working within the small groups, at times becoming distracted by self and others but did well to re-engage with prompting. Client identified their personal warning signs for crisis and gained further awareness of earliest warning signs. Client created a crisis action plan to help client better manage personal crisis warning signs. Client shared an action plan for their warning sign of increased racing thoughts which included: meditation, go for a hike/get outside, and reach out. Client appeared to benefit from creating a crisis action plan and increasing self-awareness. Client to continue PHP tx to improve use of healthy coping skills, reduce depressive sx, and prevent decompensation. Narrative Note: []
--- NOTE | 2023-03-29 09:01 | BH.SGPN.GN ---
Behaviors/Verbalizations/Mental Status: []Pt alert and oriented, casually dressed and groomed. Eye contact good. Motor activity appropriate. Speech within normal limits. Affect congruent, mood depressed. Thoughts linear, logical, no signs of hallucinations or delusions. Reviewed pt?s symptom tracker, no risk for suicidal ideation, plan, or intent. Client Response/Progress/Benefit: []Pt responded well to session, attentive and receptive to feedback. Client reported mental positive as accomplishing the tasks needed to get done so she could get her license and no longer be driving on a suspended license. Client noted this is decreased some of her stress. Client reported additional positive as making it to IOP today. Client stated mental stressor is feeling nervous and anxious about Mother's Day coming up since she lost her mom when patient was 10 years old and every Mother's Day has been a challenge for her. Client reported she knows she has plenty of plans to distract her because of her own children for that day. Seemed to benefit from support from peers. Pt will continue IOP tx to increase consistent use of healthy coping skills, challenge distorted thought patterns, and prevent decompensation.
--- NOTE | 2023-03-29 10:10 | BH.SGPN.GN ---
Behaviors/Verbalizations/Mental Status: [] Eye contact is good. Motor activity is appropriate. Appearance is casual. Speech is Appropriate. Mood is anxious. Affect is congruent. Thoughts are linear and logical. No evidence of psychosis. Client Response/Progress/Benefit: [] Pt was an active participant in group discussions. Attentive during psychoeducation on stages of change. Participated during experiential activity. Interactive group discussion on why change is difficult in which group verbalized that change involves the unknown, is scary, leads to uncertainly, makes one feel vulnerable, leads to fear of failure, and challenges one's comfort zone. Pt states change is a fresh start. Group discussion on how emotions such as loneliness, confusion, happy, frightened, hopeful, and guilt impact or prevent change. Benefited from increased awareness of stages of changes and how emotions impact change. Will continue in IOP to prevent decompensation, increase healthy coping skills, and improve functioning. Narrative Note: []
--- NOTE | 2023-03-29 11:10 | BH.SGPN.GN ---
Behaviors/Verbalizations/Mental Status: []Pt alert and oriented, neatly dressed and groomed. Eye contact good. Motor activity appropriate. Speech within normal limits. Affect constricted, mood anxious. Thoughts linear, logical, no signs of hallucinations or delusions. Client Response/Progress/Benefit: []Pt responded well to session, attentive AEB participating in activity and actively engaging in group discussion. Group processed activity to relate the strategies used to overcome barriers in the activity to managing change in own life. Discussed and set SMART goal in group as it relates to change group members are wanting to make. Pt identified change they want as being more confident and more consistent. Identified being in the action stage. Pt stated to get to the maintenance stage, pt needs to continue working on her daily goals and set up aftercare. Appeared to benefit from identifying a small goal to work towards. Pt will continue IOP tx to increase self-compassion, reduce use of unhealthy coping skills, and improve mood stability. ??? Narrative Note: []
--- NOTE | 2023-03-29 15:11 | BH.MDN ---
Multi-Disciplinary Note - Note 30-min Individual Time Started:: 12:05 Date: 03/29/23 Purpose of session/treatment goals addressed:: To address current stressors, symptoms, and barriers to treatment. Eye Contact:: Good Motor Activity:: Appropriate Appearance:: Neat Speech:: Appropriate Mood:: Anxious, Dysthymic Affect:: Congruent Thoughts:: Linear, Logical, No evidence of hallucinations/delusions noted Staff Interventions:: thought challenging, mindfulness skills, strengths perspective Client Response:: Pt responded well to session, open to meeting with therapist. Pt reports she is functioning better than she was last week. Pt shared she is in a better headspace and less pessimistic. Pt was excited to share she cleaned her house and she has been doing meditation more often. Pt's mood also tends to improve when it is warmer as pt feels connected in nature. Pt is still coping with the stressors in her life including the recent loss of her father, her daughter witnessing indecent exposure, and the overall stressors of being a single partner. Pt shared she was recently contacted by someone who wants to do a documentary on her brother that was killed several years ago. Pt stated she is torn because talking to this man would trigger pt's PTSD and grief, but pt also wants to speak my piece. After weighing out the pros and cons, pt decided that she wants to follow through with contacting him. Therapist helped pt come up with questions to ask as well as boundaries pt wants to have in place. Pt shared the phone call is today and she plans to practice some meditation beforehand. Pt reminded about the attendance policy and pt encouraged to attend IOP three times next week, but at least twice. Risks/Concerns:: Pt denies any suicidal ideations, plan, or intent as of 03/29/23. Progress Toward Goals/Plan:: Pt reports her mood and functioning are improving from last week. Pt stated she is back to taking her medications consistently and she is practicing more meditation. Pt feels more productive at home and she is crying less. However, pt's attendance continues to be inconsistent and pt report she still has not cut back on smoking marijuana and she struggles challenging negative thinking. Pt needs outpatient therapy and psychiatry and pt and therapist will begin setting this up next week. Pt is encouraged to come to IOP three times a week as pt has been coming two times. Pt will continue IOP tx to promote mood stability, reduce negative thinking patterns, and improve daily functioning. Time Stopped:: 12:30
--- NOTE | 2023-04-04 15:10 | BH.COMM ---
Communication Note - Communication with Client Communication Note: Pt did not show today or yesterday.
--- NOTE | 2023-04-05 09:47 | BH.DS ---
Discharge Summary - Demographics Date of Admission:: 02/26/23 Discharge Date: 04/05/23 Presenting Problems at Admission:: Pt is a 27-year-old female with a history of depression, anxiety, and PTSD. Pt previously completed [facility] in 2019 and referred herself back to [facility]. Pt reports worsening symptoms of depression for the past several months. 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 Pt endorses lack of motivation, lack of energy, anhedonia, thoughts of , isolation, increased sleep, hopelessness, and excessive guilt. Pt also reports anxiety with ruminations, avoidance, constant worry, and racing thoughts. Pt is not currently connected with any outpatient counseling or psychiatry. Discharge Diagnoses:: Bipolar 2 disorder, most recent episode depressed, without psychosis F31.81; Generalized anxiety disorder; Complex PTSD; Marijuana use disorder Reason for Discharge:: Pt had numerous no calls/no shows and could not adhere to the attendance policy of attending a minimum of two days a week which is [facility] level of care. - Treatment Progress During Treatment & Response: Pt has responded somewhat well to treatment. Pt was engaged when she attended, but pt was inconsistent with attendance which resulted in discharge from [facility]. Pt had numerous no call/no shows and cancellations. Pt reported progress in improved functioning at home, but pt's mood was still depressed. Issues Still to be Addressed:: Medication maintenance, complex trauma, negative thinking patterns, marijuana use, anxiety, depressive symptoms, and grief. Discharge Recommendations/Instructions:: Pt was not established with outpatient counseling and psychiatry. Discussed options of [facility] Callejas or Dr. Magdaleno for psychiatry. Also discussed grief counseling through [facility] and trauma counseling through [facility]. However, due to pt's limited attendance, no appointments were set. Discharge Handout: Complete Discharge Handout with client on aftercare options and continuity of care.
== END 2023-04-05 09:38 | disposition home or self-care (01) ==
LOC: BHIOP 08:22
PROVIDERS: Referring Provider Psychiatry & Neurology Psychiatry; Visit Provider Psychiatry & Neurology Psychiatry
DX: F31.81 Bipolar II disorder (principal); F41.1 Generalized anxiety disorder; F43.10 Post-traumatic stress disorder, unspecified; F12.90 Cannabis use, unspecified, uncomplicated
CPT/HCPCS: H2020; S9480; 90832; 90837

== ENCOUNTER 2023-10-17 15:27 | Emergency (ER) | payer MEDICAID, SELFPAY ==
[2023-10-17 15:27] VITALS: BP 136/79; PULSE 80; RESP 16; TEMP 37.2; O2SAT 100; BMI 30.6
--- NOTE | 2023-10-17 15:54 | CT_ITS ---
STUDY: CT ABDOMEN AND PELVIS WITH CONTRAST REASON FOR EXAM: Female, 28 years old. abdominal pain RADIATION DOSAGE (If Supplied By Facility): CTDIvol = ( 14.55 ) mGy, DLP = ( 1035.33 ) mGycm TECHNIQUE: Transaxial images were obtained from the dome of the diaphragm to the symphysis pubis without oral contrast. IV 100mL Isovue-370 was administered. Sagittal and coronal images were reconstructed. Individualized dose optimization techniques were used for this CT. COMPARISON: September 03, 2020 CT abdomen and pelvis FINDINGS: The visualized lung bases are unremarkable. The visualized portions of the heart are within normal limits. Normal liver. Normal gallbladder and extrahepatic biliary system. Normal spleen. Normal pancreas. Normal bilateral adrenal glands. Normal right kidney. Normal left kidney. Normal visualized stomach. Air-fluid levels in the small bowel. Normal colon. The appendix is visualized and appears normal. Normal abdominal aorta. Normal inferior vena cava. Normal retroperitoneum. Normal urinary bladder. Large bilateral complex adnexal cystic lesions noted measuring 4.2 cm on the right and 4.7 cm on the left. There is moderate free fluid in the pelvis. Normal abdominal wall. Mild levoconvex scoliosis. CT/Abdomen/Pelvis W IV Cont ONLY IMPRESSION: New complex bilateral adnexal cystic lesions and moderate free fluid in the pelvis. Recommend pelvic ultrasound. Mild ileus. Electronically Signed: Adalberto Clark MD at 17:17 EST ,
--- NOTE | 2023-10-17 15:58 | EX.ED.DYSGE1 ---
HPI <BOBO Schwarz - Last Filed: 10/17/23 20:01> History of Present Illness Chief Complaint: Abd Pain Narrative Narrative: Patient is a 28-year-old female with no significant ankle history, last menstrual cycle was September 28, 2023, history of HIV who presents to the emergency department with lower abdominal pain. Patient active started 3 days ago however is much more severe, she had nausea and vomiting today. Last sexual encounter was yesterday. She denies any fever or chills. She denies any vaginal discharge, vaginal bleeding. Denies any back pain. PFSH <BOBO Schwarz - Last Filed: 10/17/23 20:01> PFSH Medical History Alcohol use Bipolar 2 disorder, major depressive episode Cannabis use disorder SAIGE II (cervical intraepithelial neoplasia II) MILLI (generalized anxiety disorder) Low iron PTSD (post-traumatic stress disorder) Smoker Home Medications ibuprofen 600 mg tablet 600 mg PO Q6H PRN PRN pain #20 TABLETS 10/17/23 [Rx Last Taken Unknown] ondansetron 4 mg disintegrating tablet 4 mg PO Q8H PRN PRN Nausea #10 tabs 10/17/23 [Rx Last Taken Unknown] oxycodone-acetaminophen 5 mg-325 mg tablet (Percocet) 1 tab PO Q8H PRN pain 3 days #12 tabs 10/17/23 [Rx Last Taken Unknown] Allergy/AdvReac Type Severity Reaction Status Date / Time No Known Allergies Allergy Verified 06/16/22 09:14 Family History Grandmother Diabetes Surgical History (Updated 07/04/22 @ 07:07 by Wanda Kauffman NP, [employer]) H/O LEEP History of tonsillectomy and adenoidectomy Social History household members: children number of children: 3 current occupation: [employer] history of recent travel: No sexually active: Yes Smoking Status: Current every day smoker tobacco type: cigarettes alcohol intake: current alcohol intake frequency: a few times a month substance use type: marijuana what type of physical activity do you participate in: yoga frequency: 3-4 times per week seatbelt use: always do you feel safe at home: Yes additional social history: single ROS <BOBO Schwarz - Last Filed: 10/17/23 20:01> ROS ED ROS Narrative Constitutional: Negative for fever, chills, weight loss, weakness Eyes: Negative for vision loss, vision change, double vision ENT: Negative for any sore throat, ear pain, congestion Cardiovascular: Negative for any chest pain, tightness, palpitations Respiratory: Negative for any cough, sputum production, hemoptysis, dyspnea, dyspnea on exertion, orthopnea Gastrointestinal: Negative for any diarrhea, constipation, blood in stool, blood in vomit. Positive for lower abdominal pain, nausea and vomiting : Negative for any urinary frequency, dysuria, retention, blood in urine Muscle skeletal: Negative for any myalgias, arthralgias, neck pain, back pain Neurological: Negative for any headache, syncope, numbness or tingling, dizziness Skin: Negative for any rashes, lumps, itching, abrasions, lacerations Psychiatric: Negative for any depression, anxiety, stress, suicidal ideation, homicidal ideation Hematologic: Negative for any easy bruising, excessive bruising, easy bleeding Allergies: Negative for any eczema, hives, rash EXAM <BOBO Schwarz - Last Filed: 10/17/23 20:01> Physical Exam Narrative Exam Narrative: Vital signs reviewed. HEET: Head normocephalic atraumatic, TMs clear bilaterally. Posterior pharynx is clear, moist mucous membranes. Nares clear bilaterally. Neck: Supple with no lymphadenopathy or tenderness. No signs of meningismus. Cardiac: Regular rate and rhythm no murmurs gallops or rubs, equal peripheral pulses bilaterally. Respiratory: Lungs clear to auscultation bilaterally. No chest tenderness. Abdomen: Soft, patient does have tenderness to the lower abdomen, worse to the right lower quadrant active bowel sounds in all quadrants. Nondistended. No abdominal bruit or pulsatile masses. No hepatosplenomegaly Extremities: No peripheral edema, no signs of gross trauma or deformity. Active full range of motion of all extremities. Neuro: Cranial nerves II through XII intact, no focal neurological deficits. Skin: Clean dry and intact with no rash, purpura, petechiae, vesicles or pustules. Backs/flank: No CVA tenderness, no midline spinal tenderness, no deformity. Psych: Normal mood and affect. No SI, HI or acute psychosis. Const Vital Signs: 10/17/23 15:27 10/17/23 17:27 10/17/23 19:27 Temperature 98.9 F Temperature Source Temporal Pulse Rate 80 Respiratory Rate 16 18 18 Blood Pressure 136/79 H Blood Pressure Mean 98 Pulse Ox 100 Oxygen Delivery Method Room Air <Dr. Sheri Gabriel DO - Last Filed: 10/17/23 22:39> Physical Exam Const Vital Signs: 10/17/23 15:27 10/17/23 17:27 10/17/23 19:27 Temperature 98.9 F Temperature Source Temporal Pulse Rate 80 Respiratory Rate 16 18 18 Blood Pressure 136/79 H Blood Pressure Mean 98 Pulse Ox 100 Oxygen Delivery Method Room Air MDM <BOBO Schwarz - Last Filed: 10/17/23 20:01> MDM Lab Data Labs: Laboratory Results - last 24 hr 10/17/23 10/17/23 16:01 16:36 WBC 11.9 H RBC 4.61 Hgb 13.7 Hct 42.5 MCV 92.2 MCH 29.7 MCHC 32.2 RDW Std Deviation 41.9 RDW Coeff of Zuleyma 12.3 Plt Count 270 MPV 10.6 Immature Gran % (Auto) 0.600 Neut % (Auto) 76.1 H Lymph % (Auto) 17.0 L [place] % (Auto) 5.3 Eos % (Auto) 0.7 Baso % (Auto) 0.3 Absolute Neuts (auto) 9.1 H Absolute Lymphs (auto) 2.03 Nucleated RBC % 0 Sodium 136 Potassium 3.6 Chloride 105 Carbon Dioxide 25.0 Anion Gap 6 BUN 10 Creatinine 0.75 Estim Creat Clear Calc 114.62 Est GFR (MDRD) Af Amer 116 Est GFR (MDRD) Non-Af 96 BUN/Creatinine Ratio 13.3 Glucose 95 Calcium 9.5 Total Bilirubin 1.30 H AST 56 H ALT 150 H Alkaline Phosphatase 69 Total Protein 7.6 Albumin 3.9 Globulin 3.7 Albumin/Globulin Ratio 1.1 Lipase 21 Serum , Qual NEGATIVE Urine Color Yellow Urine Clarity Clear Urine pH 6.5 Ur Specific [place] 1.015 Urine Protein 15 H Urine Glucose (UA) Normal Urine Ketones Negative Urine Occult Blood Negative Urine Nitrite Negative Urine Bilirubin Negative Urine Urobilinogen 1 H Ur Leukocyte Esterase 25 H Urine RBC 0 SEEN Urine WBC 0-5 SEEN Ur Squamous Epith Cells 0-5 SEEN Urine Bacteria RARE Urine Mucus 1+ Radiography Diagnostic Testing: Clinical Impression(s) from Imaging Studies Abdomen/Pelvis CT 10/17/23 15:54 IMPRESSION: New complex bilateral adnexal cystic lesions and moderate free fluid in the pelvis. Recommend pelvic ultrasound. Mild ileus. Electronically Signed: Adalberto Clark MD at 17:17 EST , Transvaginal US 10/17/23 17:52 IMPRESSION: Multiple bilateral complex ovarian cysts and adnexal cysts. Differential considerations include endometriosis, tubo-ovarian abscesses, benign and malignant ovarian neoplasms, etc. Electronically Signed: Adalberto Clark MD at 19:45 EST Reading Location ID and State: [id number] / [place] Tel , Service support , Treatment and Re-Evaluation :: Patient appears generally well, patient appears nontoxic, vital signs are stable. Present to the emergency part with lower abdominal pain. Differential diagnosis includes acute appendicitis, ovarian cyst, diverticulitis, ovarian torsion. Patient pain is not significantly localized. Patient has no vaginal discomfort, no evidence of any STI. Patient is sexually active. She received a full abdominal work-up, as well as CT scan of the abdomen pelvis Patient's laboratory values show a leukocytosis white blood 11.9, hemoglobin 13.7, chemistries show slight elevation in bilirubin of 1.3, AST 56 with a ALT of 150. Patient is not . She did receive a CT scan of the abdomen pelvis IV contrast, this showed new complex bilateral adnexal cystic lesions and moderate free fluid in the pelvis, patient on reevaluation still has significant pain in her lower abdomen. She was redosed with IV morphine, she will be ordered a pelvic ultrasound. Patient is ultrasound shows multiple bilateral complex ovarian cyst and adnexal cyst differential considerations include endometriosis, tubo-ovarian abscesses, benign and malignant ovarian neoplasms. Patient's cysts are anywhere from 4.6 x 3 x 2.7 and smaller. Secondary this finding, I did reach out to Dr. Patel, I spoke with her, she will be followed up closely in the office. Patient be provided pain medicine, nausea for home, she also is continue take ibuprofen. She instructed to participate in pelvic rest, she is instructed return for any worsening symptoms. All questions were answered, patient stable for discharge. <Dr. Sheri Gabriel, DO - Last Filed: 10/17/23 22:39> [facility] Narrative Medical decision making narrative: I have personally performed a face to face assessment of the patient and have reviewed the ABRAHAM Note. I performed a substantive portion of the visit including all aspects of the following. My diehl findings include: History is [patient presents with lower abdominal pain that started 3 days ago. She describes nausea and vomiting and loss of appetite. Pain worse with movement and the bumps in the road on the way to the hospital were very painful. She denies fevers or chills or sweats. She denies dysuria or urgency or frequency. She complains of some low back pain. She does not think she is . Patient with history of HPV and prior LEEP procedure.] Exam HEENT-PERRLA, EOMI. Cranial nerves II through XII grossly intact. TMs clear. Mucous membranes moist. No adenopathy. Cardiovascular-regular rate and rhythm without murmur or ectopy Lungs-clear to auscultation, chest wall stable without crepitus or subcu emphysema Abdomen-normoactive bowel sounds, soft. Patient is tenderness palpation over the right lower quadrant and suprapubic region with guarding. There is no rebound, rigidity, or pineal signs. No mass palpated Extremities-intact ?4, normal range of motion, normal pulses, atraumatic] Medical Decison Making [presents with 3-day history of lower abdominal pain. In the differential would be kidney stone versus appendicitis versus UTI or pyelonephritis. Diverticulitis would be in the differential as well as and ectopic. IV line will be established. Patient will be medicated for pain. Blood work and CT imaging will be obtained]. Patient is 11.13.7 and platelet count 70 history is unremarkable. Total bilirubin slightly elevated 1.3 and AST was 56 and ALT was 150. hCG negative. Urinalysis unremarkable. CT scan of the abdomen pelvis showed moderate free fluid and complex adnexal cysts and recommended that we obtain an ultrasound. Ultrasound was obtained which did show multiple complex cysts with differential including endometriosis or tubo-ovarian abscess versus benign and malignant ovarian tumors. Case discussed with [facility] Dr. Timmons whom patient sees. We will send patient home with pain medication and have patient follow-up with [facility]. Clinically I do not feel she has tubo-ovarian abscess. Suspect she likely has a ruptured ovarian cyst and will need close follow-up. Other additions or changes: [None] Lab Data Labs: Laboratory Results - last 24 hr 10/17/23 10/17/23 16:01 16:36 WBC 11.9 H RBC 4.61 Hgb 13.7 Hct 42.5 MCV 92.2 MCH 29.7 MCHC 32.2 RDW Std Deviation 41.9 RDW Coeff of Zuleyma 12.3 Plt Count 270 MPV 10.6 Immature Gran % (Auto) 0.600 Neut % (Auto) 76.1 H Lymph % (Auto) 17.0 L [place] % (Auto) 5.3 Eos % (Auto) 0.7 Baso % (Auto) 0.3 Absolute Neuts (auto) 9.1 H Absolute Lymphs (auto) 2.03 Nucleated RBC % 0 Sodium 136 Potassium 3.6 Chloride 105 Carbon Dioxide 25.0 Anion Gap 6 BUN 10 Creatinine 0.75 Estim Creat Clear Calc 114.62 Est GFR (MDRD) Af Amer 116 Est GFR (MDRD) Non-Af 96 BUN/Creatinine Ratio 13.3 Glucose 95 Calcium 9.5 Total Bilirubin 1.30 H AST 56 H ALT 150 H Alkaline Phosphatase 69 Total Protein 7.6 Albumin 3.9 Globulin 3.7 Albumin/Globulin Ratio 1.1 Lipase 21 Serum , Qual NEGATIVE Urine Color Yellow Urine Clarity Clear Urine pH 6.5 Ur Specific [place] 1.015 Urine Protein 15 H Urine Glucose (UA) Normal Urine Ketones Negative Urine Occult Blood Negative Urine Nitrite Negative Urine Bilirubin Negative Urine Urobilinogen 1 H Ur Leukocyte Esterase 25 H Urine RBC 0 SEEN Urine WBC 0-5 SEEN Ur Squamous Epith Cells 0-5 SEEN Urine Bacteria RARE Urine Mucus 1+ Radiography Diagnostic Testing: Clinical Impression(s) from Imaging Studies Abdomen/Pelvis CT 10/17/23 15:54 IMPRESSION: New complex bilateral adnexal cystic lesions and moderate free fluid in the pelvis. Recommend pelvic ultrasound. Mild ileus. Electronically Signed: Adalberto Clark MD at 17:17 EST , Transvaginal US 10/17/23 17:52 IMPRESSION: Multiple bilateral complex ovarian cysts and adnexal cysts. Differential considerations include endometriosis, tubo-ovarian abscesses, benign and malignant ovarian neoplasms, etc. Electronically Signed: Adalberto Clark MD at 19:45 EST , Discharge Plan Triage Chief Complaint: Abd Pain ED Midlevel Provider: Fabricio Ford ED Provider: Sheri Gabriel Dx/Rx/DC Orders Clinical Impression: Ovarian cyst rupture, Abdominal pain Instructions: Treating a Ruptured Ovarian Cyst, ED Ovarian Cyst Prescriptions: New ibuprofen 600 mg tablet 600 mg PO Q6H PRN PRN (Reason: pain) Qty: 20 0RF oxycodone-acetaminophen [Percocet] 5-325 mg tablet 1 tab PO Q8H PRN (Reason: pain) 3 Days Qty: 12 0RF ondansetron 4 mg tablet,disintegrating 4 mg PO Q8H PRN PRN (Reason: Nausea) Qty: 10 0RF Primary Care Provider: Care Physician,No Primary Referrals: Frida Howard DO [Med Staff - Active Staff] - Care Physician,No Primary [Primary Care Provider] - Activity Restrictions/Additional Instructions: Please follow-up, call the [facility] tomorrow. You need to have close follow-up. You have pain medicine, anti-inflammatory as well as nausea medicine. Disposition Disposition: Home, Self Care Discharge Date/Time: 10/17/23 20:27
[2023-10-17] MEDS: Morphine 4 MG/ML Syringe IV ×2 (16:06→17:59)
[2023-10-17] MEDS: 0.9% Normal Saline (1000mL) 1,000 ML 1000 ML IV (16:06)
[2023-10-17] MEDS: Ondansetron 4 MG/2 ML Vial IV (16:07)
[2023-10-17 16:16] LABS: Absolute Lymphocyte Count 2.03 X10^3/uL (0.83-4.51); Absolute Neutrophil Count 9.1 X10^3/uL (2.0-7.7); Basophil# 0.04 X10^3/uL; Basophil% 0.3 % (0-1); Eosinophil# 0.08 X10^3/uL; Eosinophils% 0.7 % (0-5); Hematocrit 42.5 % (37-47); Hemoglobin 13.7 g/dL (12.0-15.0); Lymphocyte # 2.03 X10^3/ul (0.83-4.51); Mean Corp Hgb Conc 32.2 g/dL (32-36); Mean Corpuscular Hgb 29.7 pg (27.0-32.0); Mean Corpuscular Volume 92.2 fL (81-99); Mean Platelet Vol. 10.6 fl (6.2-12.0); Monocyte# 0.63 X10^3/uL; Monocyte% 5.3 % (0-10); NRBC Flagged by Analyzer 0 % (0-5); Neutrophil # 9.09 X10^3/uL (2.7-7.7); Neutrophil % 76.1 % (47-70); Platelet Count 270 K/mm3 (150-450); RBC Distribution Width CV 12.3 % (11.6-14.6); RBC Distribution Width SD 41.9 fl (35.1-43.9); Red Blood Count 4.61 M/mm3 (4.2-5.4); White Blood Count 11.9 K/mm3 (4.4-11.0)
[2023-10-17 16:23] LABS: Internal QC Validated? YES +Cl - CLEAR BKGD; Pregnancy, Serum, hCG Quali. NEGATIVE Negative
[2023-10-17 16:33] LABS: ALB/GLOB Ratio 1.1 RATIO (0.9-2.4); AST(SGOT) 56 U/L (15-37); Alanine Aminotransfer ALT/SGPT 150 U/L (13-56); Albumin, Serum 3.9 g/dL (3.2-5.0); Alkaline Phosphatase 69 U/L (45-117); Anion Gap 6 (5-15); BUN 10 mg/dL (7-18); BUN/Creat Ratio 13.3 RATIO (10-20); Calcium,Total 9.5 mg/dL (8.5-10.1); Chloride 105 mmol/L (98-107); Creatinine, Serum 0.75 mg/dL (0.55-1.02); EST Glomerular Filtration Rate 96 mL/min (>60); Est Glom Filt Rate - Afr Amer 116 mL/min (>60); Estimated Creatinine Clearance 114.62 ml/min; Globulin 3.7 g/dL (2.2-4.2); Glucose 95 mg/dL (74-106); Lipase 21 U/L (13-75); Potassium 3.6 mmol/L (3.5-5.1); Protein, Total 7.6 g/dL (6.4-8.2); Sodium Level 136 mmol/L (136-145)
[2023-10-17 16:41] LABS: Red Blood Cells-Urine 0 SEEN /hpf (0-5)
[2023-10-17 16:44] LABS: Color, Urine Yellow (Yellow); Glucose, Dipstick Normal (Normal); Ketone-Dipstick Negative (Negative); Leukocyte Esterase-Dipstick 25 /ul (Negative); Nitrite-Dipstick Negative (Negative); Occult Blood-Urine Negative /ul (Negative); Protein-Dipstick 15 mg/dl (Negative); Specific Gravity, Urine 1.015 (1.002-1.030); Urine Bilirubin Dipstick Negative (Negative); Urine Clarity Clear (Clear); Urine Urobilinogen 1 mg/dl (Normal); Urine pH 6.5 (5.0 - 8.0)
[2023-10-17 16:59] LABS: Bacteria RARE /hpf (None Seen); Mucous, Urine 1+ /hpf (<or=2+); Squamous Epithelial Cells - UA 0-5 SEEN /hpf (5-10); White Blood Cells 0-5 SEEN /hpf (0-5)
[2023-10-17 17:27] VITALS: RESP 18
--- NOTE | 2023-10-17 17:52 | US_ITS ---
STUDY: ULTRASOUND TRANSVAGINAL CLINICAL: Female, 28 years old. pelvic pain ABN CT TECHNIQUE: Transvaginal COMPARISON: CT abdomen and pelvis from today.. FINDINGS: Normal uterine size measuring 10.3 x 5.9 x 4.9 cm in maximal craniocaudal dimension. There are no myometrial masses. Normal endometrial thickness measuring 10 mm. There are no endometrial masses, and there is no fluid in the endometrial cavity. Normal uterine cervix. Normal right ovary, measuring 4.5 x 3.5 x 2.7 cm. 2 complex cysts measuring up to 2.4 x 2.3 x 1.8 cm.. 3.7 x 2.5 x 2.5 cm complex adnexal structures. Normal left ovary, measuring 4.6 x 3 x 2.7 cm. Complex 3.2 x 1.9 x 2 cm with internal echoes. Left adnexal cyst structure measures 3.8 x 2.9 x 2.5 cm. There is free fluid in the pelvis. US/Transvaginal Non- IMPRESSION: Multiple bilateral complex ovarian cysts and adnexal cysts. Differential considerations include endometriosis, tubo-ovarian abscesses, benign and malignant ovarian neoplasms, etc. Electronically Signed: Adalberto Clark MD at 19:45 EST ,
[2023-10-17 19:27] VITALS: RESP 18
== END 2023-10-17 20:27 | disposition home or self-care (01) ==
PROVIDERS: Nurse Practitioner; Emergency Provider Emergency Medicine; Visit Provider Emergency Medicine
DX: N83.201 Unspecified ovarian cyst, right side (principal); F31.81 Bipolar II disorder; N83.202 Unspecified ovarian cyst, left side; R10.813 Right lower quadrant abdominal tenderness; F41.1 Generalized anxiety disorder; F17.210 Nicotine dependence, cigarettes, uncomplicated
CPT/HCPCS: 74177; 76830; 80053; 81001; 83690; 84703; 85025; 96361; 96374; 96375; 96376; 99283; J7030; Q9967; A4216; J2405